=== PATIENT | male | born 1995 | race African-American/Black ===

== ENCOUNTER 2016-05-05 15:27 | Inpatient (IN) | payer MEDICAID, OTHER ==
[~2016-05-05] VITALS: Ht 182.9 cm; Wt 67.8 kg
[~2016-05-05 15:27] MED LIST: BENZ1 PO; MIRT15 PO; RISP25P IM; RISP3TAB23 PO
[2016-05-05] MEDS ORDERED: RISP50P IM (17:53)
[2016-05-05] MEDS ORDERED: RISP3 PO (17:53)
[2016-05-05] MEDS ORDERED: COGENTIN PO (17:53)
--- NOTE | 2016-05-05 18:55 | PD ---
HPI Chief Complaint: Psychiatric Symptoms Time Seen by Provider: 18:53 Travel History International Travel<30 days: No Contact w/Intl Traveler<30days: No History of Present Illness HPI Patient comes in under an ex-parte by his grandmother for making suicidal statements and acting irrationally. Patient states that when he tries to think he gets this "zapping sensation" in his brain that makes him irritable. Denies any suicidal or homicidal ideations. Denies anything making it better or worse. Denies any other medical concerns at this time. Patient denies any chest pain, shortness of breath, fevers, or abdominal pain. PFSH Past Medical History Asthma: Yes Anxiety: Yes Depression: Yes Cancer: No Cardiovascular Problems: No (DENIES) COPD: No Diabetes: No Diminished Hearing: No Endocrine: No Genitourinary: No Immune Disorder: No Neurologic: No (DENIES) Psychiatric: Yes Reproductive: No Respiratory: Yes Immunizations Current: Yes Sleep Apnea: No Social History Alcohol Use: Yes Tobacco Use: Yes Substance Use: Yes Allergies-Medications (Allergen,Severity, Reaction): Coded Allergies: No Known Allergies (Unverified , 05/05/16) Reported Meds & Prescriptions Reported Meds & Active Scripts Active Reported Risperdal Consta Inj (Risperidone) 50 Mg Inj 50 Mg IM Q14D [Cogentin] 2 Mg PO HS Risperdal (Risperidone) 3 Mg Tab 3 Mg PO HS Review of Systems Except as stated in HPI: all other systems reviewed are Neg Physical Exam Narrative GENERAL: Well-developed, well nourished, in no acute distress, and non-ill appearing. SKIN: Warm and dry. HEAD: Atraumatic. Normocephalic. EYES: Pupils equal and round. EOMI. No scleral icterus. No injection or drainage. ENT: No nasal bleeding or discharge. Mucous membranes pink and moist. NECK: Trachea midline. Supple. No nuclear rigidity. CARDIOVASCULAR: Regular rate and rhythm. No murmur appreciated. RESPIRATORY: No accessory muscle use. No respiratory distress. Clear to auscultation. Breath sounds equal bilaterally. MUSCULOSKELETAL: No obvious deformities. No clubbing. No cyanosis. No edema. Full range of motion. NEUROLOGICAL: Awake and alert. No obvious cranial nerve deficits. Motor grossly within normal limits. Normal speech. PSYCHIATRIC: Appropriate mood and affect. Data Data Orders Psych Screen (05/05/16 16:15) Diet Regular Basic (05/05/16 Dinner) Complete Blood Count With Diff (05/05/16 17:09) Comprehensive Metabolic Panel (05/05/16 17:09) Drug Screen, Random Urine (05/05/16 17:09) Alcohol (Ethanol) (05/05/16 17:09) Salicylates (Aspirin) (05/05/16 17:09) Tylenol (Acetaminophen) (05/05/16 17:09) Risperidone (Risperdal) (05/05/16 21:00) Benztropine (Cogentin) (05/05/16 21:00) Labs Laboratory Tests Test 05/05/16 05/05/16 17:49 18:03 Urine Opiates Screen NEG Urine Barbiturates Screen NEG Urine Amphetamines Screen NEG Urine Benzodiazepines Screen NEG Urine Cocaine Screen NEG Urine Cannabinoids Screen POS White Blood Count 10.1 TH/MM3 Red Blood Count 4.71 MIL/MM3 Hemoglobin 14.4 GM/DL Hematocrit 43.9 % Mean Corpuscular Volume 93.3 FL Mean Corpuscular Hemoglobin 30.6 PG Mean Corpuscular Hemoglobin 32.9 % Concent Red Cell Distribution Width 12.6 % Platelet Count 227 TH/MM3 Mean Platelet Volume 8.8 FL Neutrophils (%) (Auto) 65.8 % Lymphocytes (%) (Auto) 28.8 % Monocytes (%) (Auto) 4.5 % Eosinophils (%) (Auto) 0.5 % Basophils (%) (Auto) 0.4 % Neutrophils # (Auto) 6.6 TH/MM3 Lymphocytes # (Auto) 2.9 TH/MM3 Monocytes # (Auto) 0.5 TH/MM3 Eosinophils # (Auto) 0.1 TH/MM3 Basophils # (Auto) 0.0 TH/MM3 CBC Comment DIFF FINAL Differential Comment Sodium Level 140 MEQ/L Potassium Level 3.9 MEQ/L Chloride Level 103 MEQ/L Carbon Dioxide Level 29.0 MEQ/L Anion Gap 8 MEQ/L Blood Urea Nitrogen 7 MG/DL Creatinine 0.98 MG/DL Estimat Glomerular Filtration 115 ML/MIN Rate Random Glucose 71 MG/DL Calcium Level 9.4 MG/DL Total Bilirubin 0.6 MG/DL Aspartate Amino Transf 17 U/L (AST/SGOT) Alanine Aminotransferase 18 U/L (ALT/SGPT) Alkaline Phosphatase 104 U/L Total Protein 7.7 GM/DL Albumin 4.3 GM/DL Salicylates Level 4.3 MG/DL Acetaminophen Level LESS THAN 2.0 MCG/ML Ethyl Alcohol Level LESS THAN 3 MG/DL MDM Medical Decision Making Medical Screen Exam Complete: Yes Emergency Medical Condition: Yes Differential Diagnosis Schizophrenia, bipolar, suicidal, homicidal, other Narrative Course Patient was seen and examined. Labs were obtained and reviewed. Patient medically cleared for further treatment and evaluation by psych. Final disposition per psych. Diagnosis Primary Impression: Schizophrenia Qualified Code: F20.9 - Schizophrenia, unspecified type Condition: Stable Arslan Heredia May 05, 2016 18:55
[2016-05-05 18:57] LABS: AUTOMATED NEUTROPHIL # 6.6 TH/MM3 (1.8-7.7); BASOPHIL % 0.4 % (0.0-2.0); EOSINOPHIL # 0.1 TH/MM3 (0-0.4); EOSINOPHIL % 0.5 % (0.0-4.0); HEMATOCRIT 43.9 % (39.0-51.0); HEMO FLAGS DIFF FINAL; LYMPH % 28.8 % (9.0-44.0); LYMPHOCYTE # 2.9 TH/MM3 (1.0-4.8); MEAN CELL VOLUME 93.3 FL (80.0-100.0); MEAN CORPUSCULAR HEMOGLOBIN 30.6 PG (27.0-34.0); MEAN CORPUSCULAR HGB CONC 32.9 % (32.0-36.0); MONO % 4.5 % (0.0-8.0); NEUT % 65.8 % (16.0-70.0); PLATELET COUNT 227 TH/MM3 (150-450); RED BLOOD COUNT 4.71 MIL/MM3 (4.50-5.90); RED CELL DISTRIBUTION WIDTH 12.6 % (11.6-17.2); WHITE BLOOD COUNT 10.1 TH/MM3 (4.0-11.0)
[2016-05-05 19:03] LABS: AMPHETAMINE, URINE NEG (NEG); BARBITURATES, URINE NEG (NEG); COCAINE, URINE NEG (NEG)
[2016-05-05 19:30] LABS: ALKALINE PHOSPHATASE 104 U/L (45-117); ALT (GPT) 18 U/L (12-78); ANION GAP 8 MEQ/L (5-15); AST (GOT) 17 U/L (15-37); BLOOD UREA NITROGEN 7 MG/DL (7-18); CHLORIDE 103 MEQ/L (98-107); GLOMERULAR FILTRATION RATE 115 ML/MIN (>89); POTASSIUM 3.9 MEQ/L (3.5-5.1); SODIUM (NA) 140 MEQ/L (136-145); TOTAL BILIRUBIN ADULT 0.6 MG/DL (0.2-1.0)
[2016-05-05 19:33] LABS: ACETAMINOPHEN LESS THAN 2.0 MCG/ML (10.0-30.0)
[2016-05-05] MEDS: risperiDONE 3 MG TAB PO SCH (20:51)
[2016-05-05] MEDS: BENZTROPINE MESYLATE 2 MG TAB PO SCH (20:51)
[2016-05-05 22:23] VITALS: BP 178/75; PULSE 112; RESP 18; O2SAT 97
[2016-05-06] MEDS ORDERED: ALUMINUM/MAGNESIUM/SIMETH 30 ML CUP PO PRN (01:30)
[2016-05-06] MEDS ORDERED: diphenhydrAMINE HCL 50 MG/ML VIAL IM PRN (01:30)
[2016-05-06] MEDS ORDERED: diphenhydrAMINE HCL 50 MG/ML VIAL - HS PRN IM (01:30)
[2016-05-06] MEDS ORDERED: MAGNESIUM HYDROXIDE SUSP 30 ML CUP PO PRN (01:30)
[2016-05-06 01:54] VITALS: BP 107/77; PULSE 98; RESP 19; O2SAT 98
[2016-05-06 01:57] VITALS: BP 107/75; PULSE 78; RESP 18; O2SAT 100
[2016-05-06 02:35] VITALS: BP 122/80; PULSE 87; RESP 18; TEMP 97; O2SAT 98
[2016-05-06 06:16] VITALS: BP 104/59; PULSE 88; RESP 18; TEMP 98.1; O2SAT 99
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
[2016-05-06] MEDS: diphenhydrAMINE HCL 50 MG CAP PO PRN ×2 (17:26→21:01)
[2016-05-06] MEDS: ACETAMINOPHEN 325 MG TAB PO PRN ×2 (17:26→21:01)
[2016-05-06 18:00] VITALS: BP 131/65; PULSE 61; RESP 18; TEMP 97.5; O2SAT 100
[2016-05-06] MEDS ORDERED: BENZ2TAB PO (19:06)
[2016-05-06 20:30] VITALS: BP 131/65; PULSE 61; RESP 18
[2016-05-06] MEDS: BENZTROPINE MESYLATE 2 MG TAB PO SCH (21:00)
[2016-05-06] MEDS: risperiDONE 3 MG TAB PO SCH (21:01)
[2016-05-07 06:01] VITALS: BP 93/54; PULSE 83; RESP 16; TEMP 97.8; O2SAT 99
--- NOTE | 2016-05-07 11:52 | HHI.PYPN ---
Subjective Remarks Patient was seen and discussed with the [facility] plans staff officer. Patient remained somewhat demanding and agitated wanting to go home. But he could be reassured. He claimed that he did take the medication. He denies any suicidal and/or homicidal ideation intentions or plan at this time probably because he wants to go home. Denied any active auditory or visual hallucinations however patient gets easily agitated and paranoid if he doesn't get his way. Continue with the same treatment Review of Systems Except as stated in HPI: all other systems reviewed are Neg Psychiatric: COMPLAINS OF: Mood changes, Depression, Agitation, Delusions Objective Alert: Yes [place]: Person, Place, Situation Mood: Agitated, Depressed Affect: Restricted Memory Intact: Comment (memory seems fairly intact) Hallucinations: Other (patient denied any active auditory or visual hallucinations) Delusions: Yes Delusion Type: Paranoid Suicidal: Ideation (patient denies any suicidal ideation intentions or plan) Homicidal: Ideation (denies any homicidal ideation intentions or plan) Insight/Judgement Limited Remarks Attention and concentration mildly impaired. Gait normal. Language normal. Fund of knowledge average Vitals/IOs Vital Signs Date Time Temp Pulse Resp B/P Pulse Ox O2 Delivery O2 Flow Rate FiO2 05/07/16 06:01 97.8 83 16 93/54 99 05/06/16 01:57 Room Air Assessment & Plan Problem List: (1) Schizophrenia ICD Code: F20.9 Assessment & Plan Estimated LOS: days Justification for Cont. Inpt. Monitoring of the medication to stabilize mood Request HC Surrog/Guard Advoc?: No Problem Qualifiers (1) Schizophrenia: Qualified Code: F20.0 - Paranoid schizophrenia Chris Kraft MD May 07, 2016 11:52
[2016-05-07] MEDS: diphenhydrAMINE HCL 50 MG CAP PO PRN (14:08)
[2016-05-07 18:00] VITALS: BP 135/77; PULSE 116; RESP 16; TEMP 98.5; O2SAT 98
[2016-05-07] MEDS: BENZTROPINE MESYLATE 2 MG TAB PO SCH (20:53)
[2016-05-07] MEDS ORDERED: risperiDONE 1 MG TAB PO SCH (21:00)
[2016-05-08] MEDS: diphenhydrAMINE HCL 50 MG CAP - HS PRN PO ×2 (00:45→20:16)
[2016-05-08 05:47] VITALS: BP 112/57; PULSE 62; RESP 17; TEMP 98; O2SAT 100
--- NOTE | 2016-05-08 11:40 | HHI.PYPN ---
Subjective Remarks Patient was seen and discussed with the billing and accounting staff assistant. Patient reported that he has been having some difficulty sleeping he was up 3 or 4 times and he does not even remember getting up and eating his breakfast. But he claimed that he has been taking medication and feeling little bit better less paranoid and more cooperative is not insisting on leaving. No behavior or management problem reported. He is compliant. No side effects were complained. Advised to continue with the same treatment Review of Systems Except as stated in HPI: all other systems reviewed are Neg Psychiatric: COMPLAINS OF: Anxiety, Mood changes, Depression, Delusions Objective Alert: Yes [place]: Person, Place, Situation Mood: Agitated, Anxious, Depressed Affect: Restricted Memory Intact: Comment (memory seems fairly intact) Hallucinations: Other (patient denied any active auditory or visual hallucinations) Delusions: Yes Delusion Type: Paranoid Suicidal: Ideation (patient denies any suicidal ideation intentions or plan) Homicidal: Ideation (denies any homicidal ideation intentions or plan) Insight/Judgement Limited Vitals/IOs Vital Signs Date Time Temp Pulse Resp B/P Pulse Ox O2 Delivery O2 Flow Rate FiO2 05/08/16 05:47 98.0 62 17 112/57 100 05/06/16 01:57 Room Air Intake and Output 05/07/16 05/07/16 05/08/16 08:00 16:00 00:00 Intake Total 360 ml Balance 360 ml Assessment & Plan Problem List: (1) Schizophrenia ICD Code: F20.9 Assessment & Plan Estimated LOS: days Justification for Cont. Inpt. His current decompensation and monitoring of the medication Request HC Surrog/Guard Advoc?: No Problem Qualifiers (1) Schizophrenia: Qualified Code: F20.0 - Paranoid schizophrenia Chris Kraft MD May 08, 2016 11:40
--- NOTE | 2016-05-08 14:43 | PD.CONS ---
Provisional Diagnosis Admission Date May 06, 2016 at 01:06 [place] I. Schizophrenic disorder chronic paranoid type [place] II. Paranoid trait and dependent trait [place] III. Please see the emergency room evaluation [place] IV. Moderate stress difficulty coping and noncompliance in taking medicine [place] V. GAF of 40-45 History of Present Illness Service Psychiatry Consult Requested By Primary Care Physician No Primary Care Physician HPI This is a 21-year-old black male who was admitted under ex part. Please see the report for the detail. But according to the grandmother patient wanted to he has been staying up. He is slamming door. He talks to himself. He threatens others he refuses to take the medication or get any voluntary help. He gets easily irritated table at that point grandmother initiated the process and patient was brought here for evaluation. Patient reported that there is nothing wrong with him his grandmother needs help. And he is not mentally ill. He does admit to smoking pot. He claimed that he stays with 2 other cousins and they make noise and grandmother does not tell them not to do anything he gets easily irritated table and upset. He denies any suicidal and/or homicidal ideation intentions or plan at this time. He denies any auditory or visual hallucinations. But he did get easily upset when he did not get his way or patient wanted to be discharged and not stay in the hospital. 05/08/16 Above note dictated by Dr. Kraft reviewed and agreed with. Patient is a 21-year -old Afro-[place]ib[place]ian male admitted to Dr. medicine service under the Regalado act. Dr. Kraft has signed first opinion petition supporting [place] act. Patient seen by me with nurse Hall patient continues somewhat vigilant and paranoid though today stating he is willing to be compliant with medication. It appears recent conflict relationship at home with his grandmother also. I agree with Dr. Kraft At the present time patient meets criteria for involuntary psychiatric hospitalization under the [place] act thus I will cosign second opinion petition supporting [place] act Past Family Social History Coded Allergies: No Known Allergies (Unverified , 05/05/16) Reported Medications Benztropine 2 Mg Tab2 Mg PO HS #30 TAB Ref 0 05/06/16 Risperidone Inj (Risperdal Consta Inj)50 Mg Inj50 Mg IM Q14D #2 VIAL Ref 0 05/05/16 Risperidone (Risperdal)3 Mg Tab3 Mg PO HS #30 TAB Ref 0 05/05/16 Discontinued Scripts Risperdal3 M1 3 Mg Tab3 Mg PO Q12 21 Days Ref 0 Continue oral Risperdal for 3 weeks, or as directed by your outpatient provider. Continue to get Risperdal Consta injections as ordered. Prov:Kofi Da Silva MD 10/22/15 Risperidone (Risperdal Consta)25 Mg/2 Ml Inj25 Mg IM [id number] #1 INJECTION Ref 0 Next dose of Risperdal Consta due on 11/05/2015 Prov:Kofi Da Silva MD 10/22/15 [id number] M1 15 Mg Tab15 Mg PO HS 15 Days Ref 1 Prov:Kofi Da Silva MD 10/22/15 Benztropine Mesy1 M2 1 Mg Tab1 Mg PO Q12HR 15 Days Ref 1 Prov:Kofi Da Silva MD 10/22/15 Current Medications Medications (Trade) Dose Ordered Sig/Berna Route Start Time Stop Time Status Last Admin (Cogentin) 2 mg HS PO 05/05/16 21:00 05/07/16 20:53 (Benadryl) 50 mg Q6H PRN PO 05/06/16 01:15 05/07/16 14:08 (Benadryl Inj) 50 mg Q6H PRN IM 05/06/16 01:30 (Benadryl) 50 mg HS PRN PO 05/06/16 01:30 05/08/16 00:45 (Benadryl Inj) 50 mg HS PRN IM 05/06/16 01:30 (Tylenol) 650 mg Q4H PRN PO 05/06/16 01:30 05/06/16 21:01 (Milk Of Magnesia Liq) 30 ml DAILY PRN PO 05/06/16 01:30 (Mag-Al Plus Susp Liq) 30 ml Q6H PRN PO 05/06/16 01:30 (risperDAL) 6 mg HS PO 05/08/16 21:00 Patient's Strengths (min. 2) Patient is cooperative and verbal Physical Exam Vital Signs Vital Signs Date Time Temp Pulse Resp B/P Pulse Ox O2 Delivery O2 Flow Rate FiO2 05/08/16 05:47 98.0 62 17 112/57 100 05/06/16 01:57 Room Air I/O 05/07/16 05/07/16 05/08/16 08:00 16:00 00:00 Intake Total 360 ml Balance 360 ml Mental Status Examination Alert calm tall slender Afro-[place] male cooperative with good eye contact if somewhat guarded in his responses Appearance Clean neatly Speech: Unremarkable Orientation: x3 Memory: Unremarkable Thought Process: Linear Thought Content: Unremarkable, Paranoid (mildly) Hallucination Type: None (denies) Attention and Concentration: Other (fair) Suicidal Ideation: No Previous Suicide Attempts: No Homicidal Ideation: No Previous Homicide Attempts: No Insight: Fair Judgement: Poor Affect: Other (decreased range and intensity) Mood: Euthymic (to somewhat restricted) Motor Activity: Normal gait Assessment & Plan Problem List: (1) Schizophrenia ICD Code: F20.9 Assessment & Plan Estimated LOS: days Request HC Surrog/Guard Advoc?: No Problem Qualifiers (1) Schizophrenia: Qualified Code: F20.0 - Paranoid schizophrenia Regulo Nick MD May 08, 2016 14:43
[2016-05-08 18:58] VITALS: BP 131/58; PULSE 77; RESP 17; O2SAT 98
[2016-05-08] MEDS: BENZTROPINE MESYLATE 2 MG TAB PO SCH (20:16)
[2016-05-08] MEDS: risperiDONE 3 MG TAB PO SCH (20:16)
[2016-05-09 05:37] VITALS: BP 128/67; PULSE 73; RESP 16; TEMP 97.4
--- NOTE | 2016-05-09 18:08 | HHI.PYPN ---
Subjective Remarks Pt seen and discussed with staff. Pt is paranoid with IOR and bizarre behavior. He is compliant with medications and states that "I want to see how they do when I'm out of here." No SI/HI. Review of Systems Psychiatric: COMPLAINS OF: Hallucinations, Delusions Objective Alert: Yes [place]: Person, Place, Situation Mood: Calm Affect: Flat Memory Intact: Comment (memory seems fairly intact) Hallucinations: Auditory, Other Delusions: Yes Delusion Type: Paranoid Suicidal: Ideation (patient denies any suicidal ideation intentions or plan) Homicidal: Ideation (denies any homicidal ideation intentions or plan) Insight/Judgement poor Vitals/IOs Vital Signs Date Time Temp Pulse Resp B/P Pulse Ox O2 Delivery O2 Flow Rate FiO2 05/09/16 05:37 97.4 73 16 128/67 05/08/16 18:58 98 05/06/16 01:57 Room Air Assessment & Plan Problem List: (1) Schizophrenia ICD Code: F20.9 Assessment & Plan Continue current tx plan. Estimated LOS: days Justification for Cont. Inpt. impairments in reality construction. Request HC Surrog/Guard Advoc?: No Problem Qualifiers (1) Schizophrenia: Qualified Code: F20.0 - Paranoid schizophrenia Leonor Madsen MD May 09, 2016 18:08
[2016-05-09] MEDS: BENZTROPINE MESYLATE 2 MG TAB PO SCH (20:21)
[2016-05-09] MEDS: risperiDONE 3 MG TAB PO SCH (20:21)
[2016-05-09 21:00] VITALS: BP 118/61; PULSE 79; RESP 18; TEMP 98; O2SAT 97
[2016-05-10 05:10] VITALS: BP 102/54; PULSE 64; RESP 18; TEMP 98; O2SAT 98
--- NOTE | 2016-05-10 19:41 | HHI.PYPN ---
Subjective Remarks Pt seen and discussed with staff. He reports that he is tolerating medications without side effects. Less internal stimulation today. No SI/HI. He remains isolative but has been out of room more. Objective Alert: Yes Gooding: Person, Place, Date, Situation Mood: Calm Affect: Flat Memory Intact: Comment (memory seems fairly intact) Hallucinations: Auditory, Other Delusions: Yes Delusion Type: Paranoid Suicidal: Ideation (patient denies any suicidal ideation intentions or plan) Homicidal: Ideation (denies any homicidal ideation intentions or plan) Insight/Judgement limited Vitals/IOs Vital Signs Date Time Temp Pulse Resp B/P Pulse Ox O2 Delivery O2 Flow Rate FiO2 05/10/16 05:10 98.0 64 18 102/54 98 Assessment & Plan Problem List: (1) Schizophrenia ICD Code: F20.9 Assessment & Plan Continue tx plan. Estimated LOS: days Justification for Cont. Inpt. impairments in reality Request HC Surrog/Guard Advoc?: No Problem Qualifiers (1) Schizophrenia: Qualified Code: F20.0 - Paranoid schizophrenia Leonor Madsen MD May 10, 2016 19:41
[2016-05-10] MEDS: risperiDONE 3 MG TAB PO SCH (20:23)
[2016-05-10] MEDS: BENZTROPINE MESYLATE 2 MG TAB PO SCH (20:23)
[2016-05-10 21:10] VITALS: BP 137/86; PULSE 60; TEMP 98.1; O2SAT 98
[2016-05-11] MEDS: diphenhydrAMINE HCL 50 MG CAP - HS PRN PO (03:50)
[2016-05-11 05:23] VITALS: BP 117/66; PULSE 89; RESP 16; TEMP 98; O2SAT 99
--- NOTE | 2016-05-11 10:20 | HHI.DS ---
Psychiatry Discharge Summary Inpatient Psychiatric care?: Yes Advance Directive: No Reason Not Provided: DOES NOT HAVE ONE Mental Health AdvanceDirective: No Health Care Proxy: No Admission Admission Date May 06, 2016 at 01:06 Admission Diagnosis: (1) Schizophrenia ICD Code: F20.9 GAF Score: 45 Brief History This is a 21-year-old black male who was admitted under . Please see the report for the detail. But according to the grandmother patient wanted to he has been staying up. He is slamming door. He talks to himself. He threatens others he refuses to take the medication or get any voluntary help. He gets easily irritated table at that point grandmother initiated the process and patient was brought here for evaluation. Patient reported that there is nothing wrong with him his grandmother needs help. And he is not mentally ill. He does admit to smoking pot. He claimed that he stays with 2 other cousins and they make noise and grandmother does not tell them not to do anything he gets easily irritated table and upset. He denies any suicidal and/or homicidal ideation intentions or plan at this time. He denies any auditory or visual hallucinations. But he did get easily upset when he did not get his way or patient wanted to be discharged and not stay in the hospital. 05/08/16 Above note dictated by Dr. Kraft reviewed and agreed with. Patient is a 21-year -old Afro-Australian male admitted to Dr. medicine service under the Regalado act. Dr. Kraft has signed first opinion petition supporting [place] act. Patient seen by me with nurse Rafael patient continues somewhat vigilant and paranoid though today stating he is willing to be compliant with medication. It appears recent conflict relationship at home with his grandmother also. I agree with Dr. Kraft At the present time patient meets criteria for involuntary psychiatric hospitalization under the [place]alado act thus I will cosign second opinion petition supporting [place] act Tobacco Use In Past 30 Days: Refused To Answer Alcohol Use: Never Hospital Course Patient was started was supportive treatment. He was also started on the medication and adjusted. Patient participated in all the therapeutic activity on the floor he was also isolative and keeps to himself. No behavior or management problem reported. Patient denied any suicidal ideation intentions or plan. Denied any active auditory or visual hallucinations. Willing to take the medication and follow-up as an outpatient and wanting to go home at that point arrangements were made for him to be discharged Results Blood Pressure 117 / 66 Vital Signs Date Time Temp Pulse Resp B/P Pulse Ox O2 Delivery O2 Flow Rate FiO2 05/11/16 05:23 98.0 89 16 117/66 99 Please see the EMR Summary of Major Lab Results Nothing significant Summary of Procedures None Imaging None Pending results at discharge: No Medications # of Antipsychotic meds at D/C: 1 Appropriate >1 Antipsych meds?: 2 Approp Antipsych med options 1 - Minimum of three failed multiple trials of monotherapy. Discharge Discharge Date: May 11, 2016 Discharge Diagnosis: (1) Schizophrenia Diagnosis: Principal ICD Code: F20.9 Mental Status Exam at Disch Patient was alert oriented 3 cooperative. Casually dressed. His speech was clear without any evidence of loose associations. No behavior or management problem reported. Willing to take the medication and follow-up as an outpatient. Denied any suicidal and/or homicidal ideation intentions or plan. Denied any active auditory or visual hallucinations. Wants to go home Pt Condition on Discharge: Stable Discharge Disposition: Discharge Home Discharge Instructions Diet Instructions: As Tolerated, No Restrictions Activities you can perform: Regular-No Restrictions Scheduled Appointment: Sajan Begum Discharge Time <= 30 minutes Discharge/Advance Care Plan Health Problems: (1) Schizophrenia Goals to promote your health * To prevent worsening of your condition and complications * To maintain your health at the optimal level Directions to meet your goals Take your medications as prescribed Follow your dietary instruction Follow activity as directed Keep your appointments as scheduled Take your immunizations and boosters as scheduled If your symptoms worsen call your PCP, if no PCP go to Urgent Care Center or Emergency Room For 09/11 questions related to your inpatient stay or results of tests pending at discharge, please contact Dr. Chris Kraft at Smoking is Dangerous to Your Health. Avoid second hand smoking Problem Qualifiers (1) Schizophrenia: Qualified Code: F20.0 - Paranoid schizophrenia Chris Kraft MD May 11, 2016 10:20
[2016-05-11] MEDS ORDERED: RISP3 PO (10:22)
[2016-05-11] MEDS ORDERED: BENZ2TAB PO (10:22)
== END 2016-05-11 12:15 | disposition home or self-care (01) | DRG 885 ==
LOC: NEPJ 15:27 → NEDA 05-06 01:06 → H260 05-06 02:30
PROVIDERS: ADMIT Psychiatry & Neurology Psychiatry; ATTEND Psychiatry & Neurology Psychiatry
DX: F20.0 Paranoid schizophrenia (principal); Z91.14 Patient's other noncompliance with medication regimen; F41.9 Anxiety disorder, unspecified; F12.90 Cannabis use, unspecified, uncomplicated; J45.909 Unspecified asthma, uncomplicated; Z72.0 Tobacco use; Z81.8 Family history of other mental and behavioral disorders
CPT/HCPCS: 80053; 80307; 80320; 80329; 85025; 99284; G0480; G0481; Q0163

== ENCOUNTER 2016-10-26 17:16 | Inpatient (IN) | payer MEDICAID, OTHER ==
[~2016-10-26 17:16] MED LIST changes: -BENZ1 PO; +BENZ2TAB PO; -MIRT15 PO; -RISP25P IM; +RISP3 PO; -RISP3TAB23 PO; +RISP50P IM
[2016-10-26 17:45] VITALS: BP 131/77; PULSE 86; RESP 18; TEMP 98.3; O2SAT 98
[2016-10-26 18:18] LABS: AUTOMATED NEUTROPHIL # 5.1 TH/MM3 (1.8-7.7); BASOPHIL # 0.1 TH/MM3 (0-0.2); BASOPHIL % 0.6 % (0.0-2.0); EOSINOPHIL # 0.1 TH/MM3 (0-0.4); EOSINOPHIL % 0.7 % (0.0-4.0); HEMATOCRIT 44.6 % (39.0-51.0); HEMO FLAGS DIFF FINAL; LYMPH % 36.1 % (9.0-44.0); LYMPHOCYTE # 3.3 TH/MM3 (1.0-4.8); MEAN CELL VOLUME 93.8 FL (80.0-100.0); MEAN CORPUSCULAR HEMOGLOBIN 30.1 PG (27.0-34.0); MEAN CORPUSCULAR HGB CONC 32.2 % (32.0-36.0); MONO % 6.6 % (0.0-8.0); PLATELET COUNT 241 TH/MM3 (150-450); RED BLOOD COUNT 4.76 MIL/MM3 (4.50-5.90); WHITE BLOOD COUNT 9.1 TH/MM3 (4.0-11.0)
[2016-10-26 18:19] LABS: BLOOD, URINE NEG (NEG); COMMENT (UR) CULT NOT INDICATED; CULTURE IF INDICATED CULT NOT INDICATED; GLUCOSE,URINE NEG (NEG); KETONE, URINE NEG (NEG); NITRITE,URINE NEG (NEG); PH, URINE 5.5 (5.0-8.5); SQUAMOUS EPITHELIAL CELL URINE <1 /hpf (0-5); URINE COLOR YELLOW (YELLW/STRAW)
[2016-10-26 18:34] LABS: ANION GAP 8 MEQ/L (5-15); AST (GOT) 29 U/L (15-37); BICARBONATE 25.3 MEQ/L (21.0-32.0); BLOOD UREA NITROGEN 9 MG/DL (7-18); CHLORIDE 105 MEQ/L (98-107); GLOMERULAR FILTRATION RATE 119 ML/MIN (>89); SODIUM (NA) 138 MEQ/L (136-145)
[2016-10-26 18:35] LABS: ALT (GPT) 74 U/L (12-78)
[2016-10-26 18:36] LABS: ALKALINE PHOSPHATASE 100 U/L (45-117); TOTAL BILIRUBIN ADULT 0.6 MG/DL (0.2-1.0)
[2016-10-26 18:44] LABS: ACETAMINOPHEN LESS THAN 2.0 MCG/ML (10.0-30.0)
--- NOTE | 2016-10-26 19:37 | PD ---
HPI Chief Complaint: Psychiatric Symptoms Time Seen by Provider: 19:31 Travel History International Travel<30 days: No Contact w/Intl Traveler<30days: No History of Present Illness HPI Patient is a 21-year-old male brought into the emergency department for psychiatric evaluation under exparte. Per the [place] act report patient has not been taking his medications, he has been up all night, acting aggressively. Patient reports that he doesn't want take medications because he doesn't feel the right for him. He has no physical complaints at this time. He does endorse marijuana use today. He denies any suicidal homicidal ideations, he denies any visual auditory hallucinations. PFSH Past Medical History Asthma: Yes Anxiety: Yes Depression: Yes Cancer: No Cardiovascular Problems: Yes Chest Pain: Yes COPD: No Diabetes: No Diminished Hearing: No Endocrine: No Genitourinary: No Headaches: Yes Immune Disorder: No Musculoskeletal: Yes Neurologic: Yes Reproductive: No Respiratory: Yes (NASAL CONGESTION) Immunizations Current: Yes Sleep Apnea: No Tetanus Vaccination: < 5 Years Past Surgical History Surgical History: No Previous Surgery Social History Alcohol Use: Yes Tobacco Use: Yes Substance Use: Yes Allergies-Medications (Allergen,Severity, Reaction): Coded Allergies: No Known Allergies (Unverified , 05/05/16) Reported Meds & Prescriptions Reported Meds & Active Scripts Active Risperdal (Risperidone) 3 Mg Tab 6 Mg PO HS 14 Days Benztropine (Benztropine Mesylate) 2 Mg Tab 2 Mg PO HS 14 Days Reported Benztropine (Benztropine Mesylate) 2 Mg Tab 2 Mg PO HS Risperdal Consta Inj (Risperidone) 50 Mg Inj 50 Mg IM Q14D Risperdal (Risperidone) 3 Mg Tab 3 Mg PO HS Review of Systems Except as stated in HPI: all other systems reviewed are Neg Psychiatric: Positive: Disorder of Thought, Mood Disorder, Substance Abuse Physical Exam Narrative GENERAL: Well-developed, well-nourished, alert male. Resting comfortably in no acute distress. SKIN: Warm and dry. HEAD: Atraumatic. Normocephalic. EYES: Pupils equal and round. No scleral icterus. No injection or drainage. ENT: No nasal bleeding or discharge. Mucous membranes pink and moist. NECK: Trachea midline. No JVD. CARDIOVASCULAR: Regular rate and rhythm. RESPIRATORY: No accessory muscle use. Clear to auscultation. Breath sounds equal bilaterally. GASTROINTESTINAL: Abdomen soft, non-tender, nondistended. Hepatic and splenic margins not palpable. MUSCULOSKELETAL: Extremities without clubbing, cyanosis, or edema. No obvious deformities. NEUROLOGICAL: Awake and alert. No obvious cranial nerve deficits. Motor grossly within normal limits. Five out of 5 muscle strength in the arms and legs. Normal speech. PSYCHIATRIC: Flat mood and affect; insight and judgment impaired. Data Data Last Documented VS Vital Signs Date Time Temp Pulse Resp B/P Pulse Ox O2 Delivery O2 Flow Rate FiO2 10/26/16 17:45 98.3 86 18 131/77 98 Orders Complete Blood Count With Diff (10/26/16 17:31) Comprehensive Metabolic Panel (10/26/16:) Urinalysis - C+S If Indicated (10/26/16 17:31) Psych Screen (10/26/16 17:31) Salicylates (Aspirin) (10/26/16 17:31) Drug Screen, Random Urine (10/26/16:) Alcohol (Ethanol) (10/26/16 17:31) Tylenol (Acetaminophen) (10/26/16 17:31) Labs Laboratory Tests Test 10/26/16 17:36 White Blood Count 9.1 TH/MM3 Red Blood Count 4.76 MIL/MM3 Hemoglobin 14.4 GM/DL Hematocrit 44.6 % Mean Corpuscular Volume 93.8 FL Mean Corpuscular Hemoglobin 30.1 PG Mean Corpuscular Hemoglobin 32.2 % Concent Red Cell Distribution Width 13.0 % Platelet Count 241 TH/MM3 Mean Platelet Volume 9.0 FL Neutrophils (%) (Auto) 56.0 % Lymphocytes (%) (Auto) 36.1 % Monocytes (%) (Auto) 6.6 % Eosinophils (%) (Auto) 0.7 % Basophils (%) (Auto) 0.6 % Neutrophils # (Auto) 5.1 TH/MM3 Lymphocytes # (Auto) 3.3 TH/MM3 Monocytes # (Auto) 0.6 TH/MM3 Eosinophils # (Auto) 0.1 TH/MM3 Basophils # (Auto) 0.1 TH/MM3 CBC Comment DIFF FINAL Differential Comment Urine Color YELLOW Urine Turbidity CLEAR Urine pH 5.5 Urine Specific [place] 1.012 Urine Protein NEG mg/dL Urine Glucose (UA) NEG mg/dL Urine Ketones NEG mg/dL Urine Occult Blood NEG Urine Nitrite NEG Urine Bilirubin NEG Urine Urobilinogen LESS THAN 2.0 MG/DL Urine Leukocyte Esterase NEG Urine WBC LESS THAN 1 /hpf Urine Squamous Epithelial <1 /hpf Cells Microscopic Urinalysis Comment CULT NOT INDICATED Sodium Level 138 MEQ/L Potassium Level 4.0 MEQ/L Chloride Level 105 MEQ/L Carbon Dioxide Level 25.3 MEQ/L Anion Gap 8 MEQ/L Blood Urea Nitrogen 9 MG/DL Creatinine 0.95 MG/DL Estimat Glomerular Filtration 119 ML/MIN Rate Random Glucose 82 MG/DL Calcium Level 9.4 MG/DL Total Bilirubin 0.6 MG/DL Aspartate Amino Transf 29 U/L (AST/SGOT) Alanine Aminotransferase 74 U/L (ALT/SGPT) Alkaline Phosphatase 100 U/L Total Protein 7.6 GM/DL Albumin 4.1 GM/DL Salicylates Level 3.9 MG/DL Acetaminophen Level LESS THAN 2.0 MCG/ML Ethyl Alcohol Level LESS THAN 3 MG/DL MDM Medical Decision Making Medical Screen Exam Complete: Yes Emergency Medical Condition: Yes Interpretation(s) Laboratory Tests Test 10/26/16 17:36 White Blood Count 9.1 TH/MM3 Red Blood Count 4.76 MIL/MM3 Hemoglobin 14.4 GM/DL Hematocrit 44.6 % Mean Corpuscular Volume 93.8 FL Mean Corpuscular Hemoglobin 30.1 PG Mean Corpuscular Hemoglobin 32.2 % Concent Red Cell Distribution Width 13.0 % Platelet Count 241 TH/MM3 Mean Platelet Volume 9.0 FL Neutrophils (%) (Auto) 56.0 % Lymphocytes (%) (Auto) 36.1 % Monocytes (%) (Auto) 6.6 % Eosinophils (%) (Auto) 0.7 % Basophils (%) (Auto) 0.6 % Neutrophils # (Auto) 5.1 TH/MM3 Lymphocytes # (Auto) 3.3 TH/MM3 Monocytes # (Auto) 0.6 TH/MM3 Eosinophils # (Auto) 0.1 TH/MM3 Basophils # (Auto) 0.1 TH/MM3 CBC Comment DIFF FINAL Differential Comment Urine Color YELLOW Urine Turbidity CLEAR Urine pH 5.5 Urine Specific [place] 1.012 Urine Protein NEG mg/dL Urine Glucose (UA) NEG mg/dL Urine Ketones NEG mg/dL Urine Occult Blood NEG Urine Nitrite NEG Urine Bilirubin NEG Urine Urobilinogen LESS THAN 2.0 MG/DL Urine Leukocyte Esterase NEG Urine WBC LESS THAN 1 /hpf Urine Squamous Epithelial <1 /hpf Cells Microscopic Urinalysis Comment CULT NOT INDICATED Sodium Level 138 MEQ/L Potassium Level 4.0 MEQ/L Chloride Level 105 MEQ/L Carbon Dioxide Level 25.3 MEQ/L Anion Gap 8 MEQ/L Blood Urea Nitrogen 9 MG/DL Creatinine 0.95 MG/DL Estimat Glomerular Filtration 119 ML/MIN Rate Random Glucose 82 MG/DL Calcium Level 9.4 MG/DL Total Bilirubin 0.6 MG/DL Aspartate Amino Transf 29 U/L (AST/SGOT) Alanine Aminotransferase 74 U/L (ALT/SGPT) Alkaline Phosphatase 100 U/L Total Protein 7.6 GM/DL Albumin 4.1 GM/DL Salicylates Level 3.9 MG/DL Acetaminophen Level LESS THAN 2.0 MCG/ML Ethyl Alcohol Level LESS THAN 3 MG/DL Vital Signs Date Time Temp Pulse Resp B/P Pulse Ox O2 Delivery O2 Flow Rate FiO2 10/26/16 17:45 98.3 86 18 131/77 98 Differential Diagnosis Mood disorder versus substance abuse versus psychosis versus other Narrative Course Patient is a 21-year-old male under exparte presenting for psychiatric evaluation. Patient's vital signs are stable. Medical clearance and psychiatric screening explained to patient. Labs reviewed, no acute issues identified. Patient has been cooperative. Patient is medically cleared for psychiatric evaluation at this time. Diagnosis Primary Impression: Medical clearance for psychiatric admission Condition: Stable Roxanne Chin Oct 26, 2016 19:37
[2016-10-26 22:05] VITALS: BP 114/55; PULSE 78; RESP 18
[2016-10-26 22:52] LABS: AMPHETAMINE, URINE NEG (NEG); BARBITURATES, URINE NEG (NEG); COCAINE, URINE NEG (NEG)
[2016-10-27 01:48] VITALS: BP 136/63; PULSE 46; RESP 18; O2SAT 98
[2016-10-27 05:57] VITALS: BP 146/64; PULSE 71; RESP 17; O2SAT 96
--- NOTE | 2016-10-27 10:42 | PD ---
History of Present Illness Chief Complaint: Psychiatric Symptoms Time Seen by Provider: 10:20 Travel History International Travel<30 Days: No Contact w/Intl Traveler<30days: No Legal Status Legal Status: Ex Parte History of Present Illness: History of Present Illness HPI Mr. Salomon is a 21-year-old male brought into the emergency department under an exparte initiated by his grandmother , Ms. Michael Hidalgo . Per the report patient has not been taking his medications, stays up all night, acting aggressively, talking to himself, threatening to harm someone, very paranoid, increase in episodes of his rage, slams doors , refuses to take his medications. It continues to state that she believes that he will follow thru on his threats and will hurt himself or someone else for no reason. Chart reviewed. The patient was last hospitalized under the care of Dr. Kraft in April of 2016. His previous admission was in September of 2015 under the care of Dr. Da Silva. His hospitalizations are usually the result of his noncompliance with medication and his grandmother initiating an ex parte. Current toxicology is positive for cannabinoids. Patient seen and examined. Case discussed with nurse on J pod . Nurse on unit reports he became agitated this morning and appeared paranoid. On my examination today, patient presents as somewhat cognitively slowed , minimally cooperative and very angry. He keeps his head covered wit the blanket. No eye contact is maintained. His answers are vague and diffuse. When asked about hallucinations he states " I don't know". He presents as fairly suspicious and paranoid but does not elaborate. Limited psychiatric interview due to the degree of his anger and potential to become violent. He states " Your questions are making me hot and I get hot inside ". He will not elaborate and I did not pursue line of questioning. He did say that he does not need to take medication as he believes he does not need them. PFSH Past Medical History Asthma: Yes Anxiety: Yes Depression: Yes Cancer: No Cardiovascular Problems: Yes Chest Pain: Yes COPD: No Diabetes: No Diminished Hearing: No Endocrine: No Genitourinary: No Headaches: Yes Immune Disorder: No Musculoskeletal: Yes Neurologic: Yes Reproductive: No Respiratory: Yes (NASAL CONGESTION) Immunizations Current: Yes Sleep Apnea: No Tetanus Vaccination: < 5 Years Past Surgical History Surgical History: No Previous Surgery Psychiatric History Psychiatric History Hx Psychiatric Treatment: [facility] x2. [facility] outpatient History of Inpatient Treatment: Yes ([facility] x2. Last hosp in 2017.) Guns or firearms in home: No Social History Single male who was born in [facility]. He completed 10th grade. he lives with his grandmother. On disability. Hx of incarceration. Hx Alcohol Use: Yes Hx Tobacco Use: Yes Hx Substance Use: Yes Substance Use Type: Marijuana Other Substances Used: SMOKES MARIJUANA DAILY Hx of Substance Use Treatment: No Family Psychiatric History Unknown Allergies-Medications (Allergen,Severity, Reaction): Coded Allergies: No Known Allergies (Unverified , 05/05/16) Reported Meds & Prescriptions Reported Meds & Active Scripts Active Risperdal (Risperidone) 3 Mg Tab 6 Mg PO HS 14 Days Reported Risperdal Consta Inj (Risperidone) 50 Mg Inj 50 Mg IM Q14D Risperdal (Risperidone) 3 Mg Tab 3 Mg PO HS Review of Systems ROS Limitations: Uncooperative Exam Alert: Yes Marshall: Person Mood: Angry Affect: Restricted Speech: Clear Eye Contact: None Memory Intact: Comment (unable to test) Hallucinations: Auditory (hestaes " I don't know".) Delusions: Yes Delusion Type: Paranoid Suicidal: Ideation (deneis) Homicidal: Ideation (deneis) Insight/Judgement poor. Poor MDM Medical Decision Making Medical Record Reviewed: Yes Assessment/Plan 21 year old male with hx of schizophrenia under an ex parte for noncompliance with medication, increase in aggression, not sleeping , potential threat to self and others. At this time the patient is not cooperating and states that " he is getting hot inside " with examination inferring that he is feeling agitated. . He will be admitted to inpatient unit for further observation as well to maintain safety. Orders Complete Blood Count With Diff (10/26/16 17:31) Comprehensive Metabolic Panel (10/26/16 17:31) Urinalysis - C+S If Indicated (10/26/16 17:31) Psych Screen (10/26/16 17:31) Salicylates (Aspirin) (10/26/16 17:31) Drug Screen, Random Urine (10/26/16 17:31) Alcohol (Ethanol) (10/26/16 17:31) Tylenol (Acetaminophen) (10/26/16 17:31) Diet Regular Basic (10/27/16 Breakfast) Results Vital Signs Date Time Temp Pulse Resp B/P Pulse Ox O2 Delivery O2 Flow Rate FiO2 10/27/16 05:57 71 17 146/64 96 Room Air 10/27/16 01:48 46 18 136/63 98 Room Air 10/26/16 22:05 78 18 114/55 Room Air 10/26/16 17:45 98.3 86 18 131/77 98 Laboratory Tests Test 10/26/16 17:36 White Blood Count 9.1 Red Blood Count 4.76 Hemoglobin 14.4 Hematocrit 44.6 Mean Corpuscular Volume 93.8 Mean Corpuscular Hemoglobin 30.1 Mean Corpuscular Hemoglobin 32.2 Concent Red Cell Distribution Width 13.0 Platelet Count 241 Mean Platelet Volume 9.0 Neutrophils (%) (Auto) 56.0 Lymphocytes (%) (Auto) 36.1 Monocytes (%) (Auto) 6.6 Eosinophils (%) (Auto) 0.7 Basophils (%) (Auto) 0.6 Neutrophils # (Auto) 5.1 Lymphocytes # (Auto) 3.3 Monocytes # (Auto) 0.6 Eosinophils # (Auto) 0.1 Basophils # (Auto) 0.1 CBC Comment DIFF FINAL Differential Comment Urine Color YELLOW Urine Turbidity CLEAR Urine pH 5.5 Urine Specific [place] 1.012 Urine Protein NEG Urine Glucose (UA) NEG Urine Ketones NEG Urine Occult Blood NEG Urine Nitrite NEG Urine Bilirubin NEG Urine Urobilinogen LESS THAN 2.0 Urine Leukocyte Esterase NEG Urine WBC LESS THAN 1 Urine Squamous Epithelial <1 Cells Microscopic Urinalysis Comment CULT NOT INDICATED Sodium Level 138 Potassium Level 4.0 Chloride Level 105 Carbon Dioxide Level 25.3 Anion Gap 8 Blood Urea Nitrogen 9 Creatinine 0.95 Estimat Glomerular Filtration 119 Rate Random Glucose 82 Calcium Level 9.4 Total Bilirubin 0.6 Aspartate Amino Transf 29 (AST/SGOT) Alanine Aminotransferase 74 (ALT/SGPT) Alkaline Phosphatase 100 Total Protein 7.6 Albumin 4.1 Salicylates Level 3.9 Urine Opiates Screen NEG Acetaminophen Level LESS THAN 2.0 Urine Barbiturates Screen NEG Urine Amphetamines Screen NEG Urine Benzodiazepines Screen NEG Urine Cocaine Screen NEG Urine Cannabinoids Screen POS Ethyl Alcohol Level LESS THAN 3 Diagnosis Primary Impression: Medical clearance for psychiatric admission Additional Impression: Schizophrenia Admitting Information Admitting Physician Requests: Admit Condition: Stable Problem Qualifiers Additional Impression: Schizophrenia Qualified Code: F20.0 - Paranoid schizophrenia Archana Corona [facility] Oct 27, 2016 10:42
[2016-10-27] MEDS ORDERED: ALUMINUM/MAGNESIUM/SIMETH 30 ML CUP PO PRN (11:15)
[2016-10-27] MEDS ORDERED: ACETAMINOPHEN 325 MG TAB PO PRN (11:15)
[2016-10-27] MEDS ORDERED: MAGNESIUM HYDROXIDE SUSP 30 ML CUP PO PRN (11:15)
[2016-10-27 13:19] VITALS: BP 146/64; PULSE 71; RESP 17; O2SAT 96
[2016-10-28 06:08] VITALS: BP 114/75; PULSE 68; RESP 18; TEMP 98.1; O2SAT 98
--- NOTE | 2016-10-28 09:36 | HHI.HP ---
Provisional Diagnosis Admission Date Oct 27, 2016 at 11:15 [place] I. 1. Schizophrenia, paranoid type, acute decompensation 2. Cannabis abuse [place] II. Deferred [place] V. GAF is 30 presently Certification of Person's Competence To Provide Express and Informed Consent I have personally examined Danny Pimentel III , a person being served at [facility] on, Oct 28, 2016 09:36. Express and informed consent means consent voluntarily given in writing, by a competent person, after sufficient explanation and disclosure of the subject matter involved to enable the person to make a knowing and willful decision without any element of force, fraud, deceit, duress, or other form of constraint or coercion. This person is 18 years of age or older, is not now known to be incompetent to consent to treatment with a guardian advocate, and does not have a health care surrogate or proxy currently making medical treatment decisions. I have found this person to be one of the following: [] Competent to provide express and informed consent, as defined above, for voluntary admission to this facility and is competent to provide express and informed consent for treatment. He/she has the consistent capacity to make well reasoned, willful, and knowing decisions concerning his or her medical or mental health treatment. The person fully and consistently understands the purpose of the admission for examination/placement and is fully capable of personally exercising all rights assured [place] [x] Incompetent to provide express and informed consent to voluntary admission, and this is incompetent to provide express and informed consent to treatment. The person must be transferred to involuntary status and a petition for a guardian advocate filed with the Circuit Court. [] Refusing to provide express and informed consent to voluntary admission but is competent to provide express and informed consent for treatment. The person must be discharged or transferred to involuntary status. Form shall be completed within 24 hours of a person's arrival at the receiving facility and filed in the clinical record of each person: 1. Admitted on a voluntary basis 2. Permitted to provide express and informed consent to his/her own treatment 3. Allowed to transfer from involuntary to voluntary status 4. Prior to permitting a person to consent to his or her own treatment after having been previously found incompetent to consent to treatment. History of Present Illness Capacity: Lacks Capacity HPI Mr. Salomon is a 21-year-old male with a history of schizophrenia and cannabis use issues who presents under an ex parte order initiated by his grandmother Ms. Tucker alleging that the patient has been internally preoccupied and paranoid and has been increasingly rageful. Reviewing the electronic medical record, I note that the patient was admitted most recently under Dr. Kraft in April of this year, stabilized on Risperdal at that time. Patient seen and examined with counselor and nurse. Chart reviewed. Case discussed with nursing staff. On my examination today, the patient presents as guarded and paranoid. He keeps the covers over his head for much of the interview. He says that he was sent into the hospital he cut see has been "helping" his grandmother. He admits that he has been nonadherent with psychotropic medications for the last 2 months but cannot say why he is not taking them. He does not describe any side effects from the medications when he was taking them. He denies any audiovisual hallucinations but appears frankly internally preoccupied. I can elicit no feelings of ideas of reference or thought insertion/withdrawal. He denies any suicidal ideation or homicidal ideation but seems unreliable to contract for safety. He is unable to describe his mood and his affect is quite flat. He is generally hypoverbal. Thought process slowed with some thought blocking. Remainder of the psychiatric ROS is negative. Past psychiatric history: Patient has a history of schizophrenia and cannabis use. He is unsure of whether he is under psychiatric care on an outpatient basis. He denies a history of interval psychiatric admissions since he was here in April. He denies a history of suicide attempts. Family history: Patient denies any family history of mental illness. Chemical dependency history: Patient endorses regular use of cannabis. He says "I just do it." He becomes a little bit defensive on this point and seems pre- contemplative with respect to changing his pattern of use. Social history: Patient reports that he is living with his grandmother. He is single with no children. He has a 10th grade education. He is disabled. He does some yard work on the side. He denies any access to guns or firearms. He does endorse a history of legal problems in the past but denies any active legal issues. Review of Systems ROS Limitations: Psychotic, Poor Historian Except as stated in HPI: all other systems reviewed are Neg Past Psych History Psychological trauma history No reported trauma history to me Violence risk - others (6 mos) Indeterminate. Patient is psychotic and unpredictable. Violence risk - self (6 mos) Indeterminate. Patient is psychotic and unpredictable. Substance Abuse History Drugs/Alcohol past 12 months See above Past Family Social History Coded Allergies: No Known Allergies (Unverified , 05/05/16) Past Medical History See electronic medical record Active Scripts Risperidone (Risperdal)3 Mg Tab6 Mg PO HS 14 Days Ref 1 Prov:Chris Kraft MD 05/11/16 Reported Medications Risperidone Inj (Risperdal Consta Inj)50 Mg Inj50 Mg IM Q14D #2 VIAL Ref 0 05/05/16 Risperidone (Risperdal)3 Mg Tab3 Mg PO HS #30 TAB Ref 0 05/05/16 Discontinued Reported Medications Benztropine 2 Mg Tab2 Mg PO HS #30 TAB Ref 0 05/06/16 Discontinued Scripts Benztropine 2 Mg Tab2 Mg PO HS 14 Days Ref 1 Prov:Chris Kraft MD 05/11/16 Current Medications Medications (Trade) Dose Ordered Sig/Berna Route Start Time Stop Time Status Last Admin (Tylenol) 650 mg Q4H PRN PO 10/27/16 11:15 (Milk Of Magnesia Liq) 30 ml DAILY PRN PO 10/27/16 11:15 (Mag-Al Plus Susp Liq) 30 ml Q6H PRN PO 10/27/16 11:15 Family History See above Social History See above Patient's Strengths (min. 2) In monitored setting. Verbally fluent. Physical Exam Physical exam completed by ED provider. On my examination today, the patient appears to be no acute physical distress. No motor abnormalities noted. Laboratories vitals signs reviewed: Vital Signs Vital Signs Date Time Temp Pulse Resp B/P Pulse Ox O2 Delivery O2 Flow Rate FiO2 10/28/16 06:08 98.1 68 18 114/75 98 10/27/16 13:19 Room Air Lab Results Item Value Date Time White Blood Count 9.1 TH/MM3 10/26/16 173 Hemoglobin 14.4 GM/DL 10/26/16 1736 Platelet Count 241 TH/MM3 10/26/16 1736 Sodium Level 138 MEQ/L 10/26/16 1736 Potassium Level 4.0 MEQ/L 10/26/16 1736 Chloride Level 105 MEQ/L 10/26/16 173 Carbon Dioxide Level 25.3 MEQ/L 10/26/16 173 Blood Urea Nitrogen 9 MG/DL 10/26/16 1736 Creatinine 0.95 MG/DL 10/26/16 1736 Aspartate Amino Transf (AST/SGOT) 29 U/L 10/26/16 173 Alanine Aminotransferase (ALT/SGPT) 74 U/L 10/26/16 173 Alkaline Phosphatase 100 U/L 10/26/16 173 Urine Cannabinoids Screen POS H 10/26/16 1736 Ethyl Alcohol Level LESS THAN 3 MG/DL 10/26/16 173 Urinalysis bland. Mental Status Examination Patient is in hospital gown. He is somewhat disheveled. He is awake and alert and oriented to person and hospital at least. No motor abnormalities noted. Speech is somewhat slow with increased speech latency. Lying which and fund of knowledge seem average. Focus and concentration impaired. Memory seems at least fair on clinical exam. Patient is unable to describe mood for affect is flat. Thought process fairly linear but slowed. Paranoia present. Appears frankly internally preoccupied. Denies suicidal or homicidal ideation but seems unreliable contract for safety. Insight and judgment are poor. Assessment & Plan Problem List: (1) Schizophrenia ICD Code: F20.9 (2) Cannabis abuse ICD Code: F12.10 Assessment & Plan This is a 21-year-old male with psychiatric history as detailed above who presents under ex parte order initiated by his grandmother. On my examination today, the patient presents as paranoid and internally preoccupied. He admits to medication nonadherence. He has previous good response to Risperdal. Patient requires psychiatric hospitalization at this time for safety, observation and stabilization. Admit inpatient. Involuntary status. I have completed first opinion. Consult for second opinion. Request healthcare surrogate and guardian advocate. I called over to Sajan Baig to confirm last dose of Risperdal Consta as he has been on this in the past, but it seems that he hasn't been seen at [facility] since April of this year. I'll check an EKG for QTC but so long as this is within normal limits plan to start the patient on either Risperdal constant or Invega Sustenna given history of good tolerability to Risperdal in the past. [Update: EKG reveals sinus rhythm with QTc wnl. I will start oral Risperdal 1mg BID with plans for PERAZA tomorrow, ]. Haldol as needed for agitation, Ativan as needed for anxiety, Cogentin as needed for EPS, Ambien as needed for sleep. Vitals every shift. Counselor to see and obtain collateral from grandmother. Disposition planning. Estimated length of stay: 10-13 days. Discharge Planning Pending stabilization. Request HC Surrog/Guard Advoc?: Yes Problem Qualifiers (1) Schizophrenia: Qualified Code: F20.0 - Paranoid schizophrenia Kofi Da Silva MD Oct 28, 2016 09:36
[2016-10-28 10:14] LABS: ANION GAP 6 MEQ/L (5-15); BICARBONATE 31.4 MEQ/L (21.0-32.0); BLOOD UREA NITROGEN 10 MG/DL (7-18); CHLORIDE 103 MEQ/L (98-107); GLOMERULAR FILTRATION RATE 118 ML/MIN (>89); SODIUM (NA) 140 MEQ/L (136-145)
[2016-10-28] MEDS ORDERED: BENZTROPINE MESYLATE 1 MG TAB PO PRN (10:15)
[2016-10-28] MEDS ORDERED: BENZTROPINE MESYLATE 2 MG/2 ML VIAL IM PRN (10:15)
[2016-10-28] MEDS ORDERED: HALOPERIDOL LACTATE 5 MG/ML AMP IM PRN (10:15)
[2016-10-28] MEDS ORDERED: LORazepam 2 MG/ML VIAL IM PRN (10:15)
[2016-10-28] MEDS ORDERED: LORazepam 2 MG TAB PO PRN (10:15)
[2016-10-28] MEDS ORDERED: HALOPERIDOL 5 MG TAB PO PRN (10:15)
[2016-10-28] MEDS ORDERED: ZOLPIDEM TARTRATE 5 MG TAB PO PRN (10:15)
[2016-10-28 10:16] LABS: HDL CHOLESTEROL 48.1 MG/DL (40.0-60.0); LDL CHOLESTEROL 89 MG/DL (0-99)
--- NOTE | 2016-10-28 10:24 | PD.PSY.CON ---
Provisional Diagnosis Admission Date Oct 27, 2016 at 11:15 [place] I. 1. Schizophrenia, paranoid type, acute decompensation 2. Cannabis abuse [place] II. Deferred [place] V. GAF is 30 presently History of Present Illness Service Psychiatry Consult Requested By Primary Care Physician Unknown HPI Mr. Salomon is a 21-year-old male with a history of schizophrenia and cannabis use issues who presents under an ex parte order initiated by his grandmother Ms. Tucker alleging that the patient has been internally preoccupied and paranoid and has been increasingly rageful. Reviewing the electronic medical record, I note that the patient was admitted most recently under Dr. Kraft in April of this year, stabilized on Risperdal at that time. Patient seen and examined with counselor and nurse. Chart reviewed. Case discussed with nursing staff. On my examination today, the patient presents as guarded and paranoid. He keeps the covers over his head for much of the interview. He says that he was sent into the hospital he cut see has been "helping" his grandmother. He admits that he has been nonadherent with psychotropic medications for the last 2 months but cannot say why he is not taking them. He does not describe any side effects from the medications when he was taking them. He denies any audiovisual hallucinations but appears frankly internally preoccupied. I can elicit no feelings of ideas of reference or thought insertion/withdrawal. He denies any suicidal ideation or homicidal ideation but seems unreliable to contract for safety. He is unable to describe his mood and his affect is quite flat. He is generally hypoverbal. Thought process slowed with some thought blocking. Remainder of the psychiatric ROS is negative. Past psychiatric history: Patient has a history of schizophrenia and cannabis use. He is unsure of whether he is under psychiatric care on an outpatient basis. He denies a history of interval psychiatric admissions since he was here in April. He denies a history of suicide attempts. Family history: Patient denies any family history of mental illness. 10/28/16 Above note dictated by reviewed and agreed with. Patient seen by me with staff in his room continues to isolate covers of to his chin a marked delays in his responses as if responding to internal stimuli. Showing no insight into his issues are behavior with his family. Dr. Da Silva @first opinion petition supporting [place] act. I agree. Patient meets criteria for involuntary psychiatric hospitalization under the [place] act. I will sign second opinion petition supporting [place] act Chemical dependency history: Patient endorses regular use of cannabis. He says "I just do it." He becomes a little bit defensive on this point and seems pre- contemplative with respect to changing his pattern of use. Social history: Patient reports that he is living with his grandmother. He is single with no children. He has a 10th grade education. He is disabled. He does some yard work on the side. He denies any access to guns or firearms. He does endorse a history of legal problems in the past but denies any active legal issues. Past Family Social History Coded Allergies: No Known Allergies (Unverified , 05/05/16) Active Scripts Risperidone (Risperdal)3 Mg Tab6 Mg PO HS 14 Days Ref 1 Prov:Chris Kraft MD 05/11/16 Reported Medications Risperidone Inj (Risperdal Consta Inj)50 Mg Inj50 Mg IM Q14D #2 VIAL Ref 0 05/05/16 Risperidone (Risperdal)3 Mg Tab3 Mg PO HS #30 TAB Ref 0 05/05/16 Discontinued Reported Medications Benztropine 2 Mg Tab2 Mg PO HS #30 TAB Ref 0 05/06/16 Discontinued Scripts Benztropine 2 Mg Tab2 Mg PO HS 14 Days Ref 1 Prov:Chris Kraft MD 05/11/16 Current Medications Medications (Trade) Dose Ordered Sig/Berna Route Start Time Stop Time Status Last Admin (Tylenol) 650 mg Q4H PRN PO 10/27/16 11:15 (Milk Of Magnesia Liq) 30 ml DAILY PRN PO 10/27/16 11:15 (Mag-Al Plus Susp Liq) 30 ml Q6H PRN PO 10/27/16 11:15 Patient's Strengths (min. 2) In monitored setting. Verbally fluent. Physical Exam Vital Signs Vital Signs Date Time Temp Pulse Resp B/P Pulse Ox O2 Delivery O2 Flow Rate FiO2 10/28/16 06:08 98.1 68 18 114/75 98 10/27/16 13:19 Room Air Mental Status Examination Alert isolating guarded vigilant male Appearance Somewhat disheveled Speech: Hesitant, Slow Orientation: Person Memory: Unremarkable (fair) Thought Process: Loose Association Thought Content: Paranoid Language Poor Fund of Knowledge Poor Hallucination Type: None (appears to be responding to internal stimuli) Attention and Concentration: Other (poor) Suicidal Ideation: No (denies) Previous Suicide Attempts: No Homicidal Ideation: No (denies) Previous Homicide Attempts: No Insight: Poor Judgment: Poor Affect: Other (slight decrease range intensity) Mood: Other (restricted) Motor Activity: Normal gait Assessment & Plan Problem List: (1) Schizophrenia ICD Code: F20.9 (2) Cannabis abuse ICD Code: F12.10 Assessment & Plan Estimated LOS: days Request HC Surrog/Guard Advoc?: Yes Problem Qualifiers (1) Schizophrenia: Qualified Code: F20.0 - Paranoid schizophrenia Regulo Nick MD Oct 28, 2016 10:24
--- NOTE | 2016-10-28 16:20 | EKG ---
Date Performed: 10/28/2016 Time Performed: 14:36:04 PTAGE: 21 years EKG: SINUS BRADYCARDIA WITH SINUS ARRHYTHMIA INDETERMINATE AXIS POSSIBLE RIGHT VENTRICULAR CONDU CTION DELAY BORDERLINE ECG NO PREVIOUS TRACING DOCTOR: Pedro Saba Interpretating Date/Time 10/28/2016 16:19:06
[2016-10-28 17:53] LABS: HEMOGLOBIN A1b 1.2 %; HEMOGLOBIN LA1C 1.7 %; HEMOGLOBIN P3 2.9 %
[2016-10-28 18:03] VITALS: BP 116/55; PULSE 54; RESP 16; TEMP 98.4; O2SAT 97
[2016-10-28] MEDS: risperiDONE ODT 1 MG TAB PO SCH (21:33)
[2016-10-29 06:14] VITALS: BP 128/67; PULSE 64; RESP 18; TEMP 98; O2SAT 97
--- NOTE | 2016-10-29 09:06 | HHI.PYPN ---
Subjective Remarks Patient seen and examined with nurse. Chart reviewed. Case discussed with nursing staff who reports that the patient has been somewhat petulant when redirected by staff but otherwise no real behavioral problem. On my examination today, patient is less guarded and more conversant. He does admit to some VH of "stuff coming through a hole in the wall." He gestures to the wall, but there is no hole there that I can see. When I ask if he is hearing voices, he deflects the question and says instead how "mellow" the Risperdal is making him feel. He insists that he had some sort of antipsychotic injection in September, but [facility] has no record of him since April. I tried calling his grandmother to clarify if he was seen elsewhere, but the number on file kept ringing with no available VM. Patient denies side effects from medications and would like to titrate the Risperdal at night. No physical complaints besides mild headache in the morning, now gone, which he says is chronic. Review of Systems ROS Limitations: Poor Historian Except as stated in HPI: all other systems reviewed are Neg Objective Alert: Yes [place]: Person, Place Mood: Calm Affect: Blunted Memory Intact: Comment (not formally assessed) Hallucinations: Auditory (deflects, somewhat int stim), Visual (as above) Delusions: Yes Delusion Type: Paranoid (less) Suicidal: Ideation (No SI) Homicidal: Ideation (No HI) Insight/Judgment Poor Remarks No abnormal motor movements noted. Thought process fairly linear today. Grooming and hygiene fair. Labs Test 10/28/16 09:26 Sodium Level 140 MEQ/L Potassium Level 4.0 MEQ/L Chloride Level 103 MEQ/L Carbon Dioxide Level 31.4 MEQ/L Anion Gap 6 MEQ/L Blood Urea Nitrogen 10 MG/DL Creatinine 0.96 MG/DL Estimat Glomerular Filtration 118 ML/MIN Rate Random Glucose 107 MG/DL Hemoglobin A1c 4.8 % Calcium Level 9.4 MG/DL Triglycerides Level 46 MG/DL Cholesterol Level 146 MG/DL LDL Cholesterol 89 MG/DL HDL Cholesterol 48.1 MG/DL Cholesterol/HDL Ratio 3.03 RATIO BMP, lipid panel and hemoglobin A1c all unremarkable. Vitals/IOs Vital Signs Date Time Temp Pulse Resp B/P Pulse Ox O2 Delivery O2 Flow Rate FiO2 10/29/16 06:14 98.0 64 18 128/67 97 7/11/17 13:19 Room Air Assessment & Plan Problem List: (1) Schizophrenia ICD Code: F20.9 (2) Cannabis abuse ICD Code: F12.10 Assessment & Plan Given ambiguity about when patient last received long-acting injectable, I will stick with oral Risperdal for now, titrating to 1 mg in the morning and 2 mg at bedtime. Continue to monitor on the inpatient unit. Continue other medications and care as ordered. Justification for Cont. Inpt. Medication changes in process. High risk for decompensation in a less restrictive environment. Discharge Planning Pending psychiatric stabilization. Request HC Surrog/Guard Advoc?: Yes Problem Qualifiers (1) Schizophrenia: Qualified Code: F20.0 - Paranoid schizophrenia Kofi Da Silva MD Oct 29, 2016 09:06
[2016-10-29] MEDS: risperiDONE ODT 1 MG TAB PO SCH (09:31)
[2016-10-29 20:16] VITALS: BP 150/90; PULSE 115; RESP 18; TEMP 98; O2SAT 99
[2016-10-29] MEDS ORDERED: risperiDONE ODT 2 MG TAB PO SCH (21:00)
[2016-10-30 06:06] VITALS: BP 136/70; PULSE 91; RESP 18; TEMP 98; O2SAT 96
[2016-10-30] MEDS ORDERED: risperiDONE ODT 1 MG TAB PO SCH (09:00)
[2016-10-30] MEDS ORDERED: RISP1 PO (09:09)
[2016-10-30] MEDS ORDERED: RISP25P IM (09:09)
--- NOTE | 2016-10-30 09:09 | HHI.DS ---
Psychiatry Discharge Summary Inpatient Psychiatric care?: Yes Advance Directive: No Reason Not Provided: DOES NOT HAVE Mental Health AdvanceDirective: No Health Care Proxy: No Admission Admission Date Oct 27, 2016 at 11:15 Admission Diagnosis: (1) Schizophrenia ICD Code: F20.9 (2) Cannabis abuse ICD Code: F12.10 Brief History Mr. Salomon is a 21-year-old male with a history of schizophrenia and cannabis use issues who presents under an ex parte order initiated by his grandmother Ms. Tucker alleging that the patient has been internally preoccupied and paranoid and has been increasingly rageful. Reviewing the electronic medical record, I note that the patient was admitted most recently under Dr. Kraft in April of this year, stabilized on Risperdal at that time. Patient seen and examined with counselor and nurse. Chart reviewed. Case discussed with nursing staff. On my examination today, the patient presents as guarded and paranoid. He keeps the covers over his head for much of the interview. He says that he was sent into the hospital he cut see has been "helping" his grandmother. He admits that he has been nonadherent with psychotropic medications for the last 2 months but cannot say why he is not taking them. He does not describe any side effects from the medications when he was taking them. He denies any audiovisual hallucinations but appears frankly internally preoccupied. I can elicit no feelings of ideas of reference or thought insertion/withdrawal. He denies any suicidal ideation or homicidal ideation but seems unreliable to contract for safety. He is unable to describe his mood and his affect is quite flat. He is generally hypoverbal. Thought process slowed with some thought blocking. Remainder of the psychiatric ROS is negative. Past psychiatric history: Patient has a history of schizophrenia and cannabis use. He is unsure of whether he is under psychiatric care on an outpatient basis. He denies a history of interval psychiatric admissions since he was here in April. He denies a history of suicide attempts. Family history: Patient denies any family history of mental illness. Chemical dependency history: Patient endorses regular use of cannabis. He says "I just do it." He becomes a little bit defensive on this point and seems pre- contemplative with respect to changing his pattern of use. Social history: Patient reports that he is living with his grandmother. He is single with no children. He has a 10th grade education. He is disabled. He does some yard work on the side. He denies any access to guns or firearms. He does endorse a history of legal problems in the past but denies any active legal issues. Tobacco Use In Past 30 Days: 5 or More Cigarettes/Day Alcohol Use: Monthly or Less Hospital Course The patient was admitted to a locked, inpatient psychiatric unit. Appropriate precautions were in place throughout patient's hospital stay. The patient was seen and examined daily on the unit by psychiatry and also visited by counselor. Psychotropic medications were adjusted. Patient tolerated medication changes well without side effects. Patient had improvement in presenting psychiatric symptomatology during the course of his hospital stay. There was no evidence of any suicidal or homicidal behavior on the inpatient unit. Patient remained in generally good behavioral control. He was compliant with medications. On the day of discharge: Patient seen and examined. Chart reviewed. Case discussed with nursing staff reports the patient is much improved and has been no behavioral problem on the unit. On my examination today, the patient requests discharge from the inpatient psychiatric unit. He denies any suicidal or homicidal ideation, intent or plan on direct questioning and contracts for safety. No issues with mood. No depressive or hypomanic/ manic symptoms. He denies audiovisual hallucinations. No delusions elicited. Denies side effects from medications. Agreeable to receiving long-acting injectable Risperdal prior to discharge, and we did confirm that his last dose was no later than July of this year. No physical complaints. Counselor has reached out to patient's grandmother who verbalized no safety concerns but did express concerns regarding medication nonadherence, and the counselor did explain that we will be starting long-acting injectable antipsychotic prior to discharge. Weighing the relevant factors and based on the available evidence, I hydrogenation still operator that the patient is at low imminent risk of harm to self or others from a mental illness as defined under the [place] act and his level of function is adequate for outpatient care. Consequently, the patient does not meet criteria for ongoing involuntary psychiatric hospitalization at this time. Given that he does not meet criteria for involuntary psychiatric hospitalization at this time and given that he is requesting discharge from the inpatient psychiatric unit today, I will arrange for his discharge home with psychiatric follow-up as arranged by counselor. Patient is also to follow-up with primary care. I have counseled the patient to abstain from substances of abuse and have explained that I think that his cannabis use was a large part of his presenting psychotic decompensation. I have counseled the patient to return to the psychiatric emergency room for any concerning psychiatric complaints as part of a general safety plan. Results Blood Pressure 136 / 70 Vital Signs Date Time Temp Pulse Resp B/P Pulse Ox O2 Delivery O2 Flow Rate FiO2 10/30/16 06:06 98.0 91 18 136/70 96 10/27/16 13:19 Room Air Laboratory Tests Test 10/28/16 09:26 Random Glucose 107 MG/DL (74-106) Laboratory Results Test 10/28/16 09:26 Hemoglobin A1c 4.8 % (4.3-6.0) Triglycerides Level 46 MG/DL (42-150) Cholesterol Level 146 MG/DL (120-200) LDL Cholesterol 89 MG/DL (0-99) HDL Cholesterol 48.1 MG/DL (40.0-60.0) Summary of Procedures None done Imaging None done Pending results at discharge: No Medications # of Antipsychotic meds at D/C: 1 Approp Antipsych med options 1 - Minimum of three failed multiple trials of monotherapy. 2 - Documented plan to taper to monotherapy due to previous use of multiple meds OR cross-taper in progress at D/C. 3 - Documentation of augmentation of Clozapine. 4 - Justification other than those listed in allowable values 1-3, document here : Discharge Discharge Date: Oct 30, 2016 Discharge Diagnosis: (1) Schizophrenia Diagnosis: Principal (likely component of substance induced psychosis. Stabilized.) ICD Code: F20.9 (2) Cannabis abuse Diagnosis: Secondary (counseled to quit) ICD Code: F12.10 GAF 55 Mental Status Exam at Disch Patient is casually dressed. He is well groomed. He is awake and alert and oriented to person and hospital at least. No abnormal motor movements noted. Speech is within normal limits for rate, tone and volume. Mood is fair and affect is blunted. Thought process much more linear today versus admission. No loosening of associations. No delusions elicited. Denies audiovisual hallucinations. Denies suicidal or homicidal ideation, intent or plan. Insight and judgment are likely chronically poor. Pt Condition on Discharge: Stable Discharge Disposition: Discharge Home Discharge Instructions Diet Instructions: As Tolerated, No Restrictions Activities you can perform: Weight Bearing as Zach Scheduled Appointment: as per counselor's notes New Medications: Risperidone Inj (Risperdal Consta Inj) 25 Mg Inj 25 MG IM Q14D This dose of Risperdal Consta due on 11/13/16. Mental Health #2 Ref 0 VIAL Risperidone (Risperdal) 1 Mg Tab 1 MG PO DIRECTED 1mg PO qAM and 2mg PO qHS. Continue taking oral Risperdal for at least 3 weeks, or as instructed by outpatient provider. Be sure to get next Risperdal Consta injection. Mental Health Days 15 Ref 1 TAB Discontinued Medications: Risperidone (Risperdal) 3 Mg Tab 3 MG PO HS #30 Ref 0 TAB Risperidone Inj (Risperdal Consta Inj) 50 Mg Inj 50 MG IM Q14D #2 Ref 0 VIAL Risperidone (Risperdal) 3 Mg Tab 6 MG PO HS hallucinations Days 14 Ref 1 TAB Discharge Time <= 30 minutes Discharge/Advance Care Plan Health Problems: (1) Schizophrenia (2) Cannabis abuse Goals to promote your health * To prevent worsening of your condition and complications * To maintain your health at the optimal level Directions to meet your goals Take your medications as prescribed Follow your dietary instruction Follow activity as directed Keep your appointments as scheduled Take your immunizations and boosters as scheduled If your symptoms worsen call your PCP, if no PCP go to Urgent Care Center or Emergency Room For 09/11 questions related to your inpatient stay or results of tests pending at discharge, please contact Dr. Kofi Da Silva at Smoking is Dangerous to Your Health. Avoid second hand smoking Problem Qualifiers (1) Schizophrenia: Qualified Code: F20.0 - Paranoid schizophrenia Kofi Da Silva MD Oct 30, 2016 09:09
[2016-10-30] MEDS ORDERED: risperiDONE EXT REL INJ 25 MG/2 ML VIAL IM ONE (09:15)
== END 2016-10-30 11:25 | disposition home or self-care (01) | DRG 885 ==
LOC: NEDAMB 17:16 → NEDA 10-27 11:15 → H270 10-27 13:17
PROVIDERS: ADMIT Psychiatry & Neurology Psychiatry; ATTEND Psychiatry & Neurology Psychiatry
DX: F20.0 Paranoid schizophrenia (principal); Z91.14 Patient's other noncompliance with medication regimen; F12.10 Cannabis abuse, uncomplicated
CPT/HCPCS: 80048; 80053; 80061; 80307; 81001; 83036; 85025; 93005; J2794

== ENCOUNTER 2017-07-07 15:22 | Inpatient (IN) | payer MEDICAID, OTHER ==
[~2017-07-07] VITALS: Ht 185.4 cm; Wt 67.9 kg
[~2017-07-07 15:22] MED LIST changes: -BENZ2TAB PO; +RISP1 PO; +RISP25P IM; -RISP3 PO; -RISP50P IM
[2017-07-07 15:33] VITALS: BP 162/86; PULSE 78; RESP 16; TEMP 98.2; O2SAT 98
--- NOTE | 2017-07-07 15:53 | PD ---
HPI Chief Complaint: Psychiatric Symptoms Time Seen by Provider: 15:36 Travel History International Travel<30 days: No Contact w/Intl Traveler<30days: No Traveled to known affect area: No History of Present Illness HPI 22-year-old male presents to the emergency department under ex parte by his family member for psychiatric evaluation. According to the ex parte, the patient has punched a hole in the wall recently, has not been taking his medications. The patient reports history of bipolar disorder and anxiety. He states he is taking his medications. Patient denies any current suicidal or homicidal ideation. At first, he states that he has hallucinations, but then he says that he just "talks a lot". He denies any illicit drug use. Moderate severity. PFSH Past Medical History Asthma: Yes Anxiety: Yes Depression: Yes Cancer: No Cardiovascular Problems: Yes Chest Pain: Yes COPD: No Diabetes: No Diminished Hearing: No Endocrine: No Genitourinary: No Headaches: Yes Immune Disorder: No Musculoskeletal: Yes Neurologic: Yes Psychiatric: Yes Reproductive: No Respiratory: Yes (NASAL CONGESTION) Immunizations Current: Yes Sleep Apnea: No Social History Alcohol Use: Yes Tobacco Use: Yes Substance Use: Yes (POT) Allergies-Medications (Allergen,Severity, Reaction): Coded Allergies: No Known Allergies (Unverified , 05/05/16) Reported Meds & Prescriptions Reported Meds & Active Scripts Active Risperdal Consta Inj (Risperidone) 25 Mg Inj 25 Mg IM Q14D This dose of Risperdal Consta due on 11/13/16. Risperdal (Risperidone) 1 Mg Tab 1 Mg PO DIRECTED 15 Days 1mg PO qAM and 2mg PO qHS. Continue taking oral Risperdal for at least 3 weeks, or as instructed by outpatient provider. Be sure to get next Risperdal Consta injection. Review of Systems Except as stated in HPI: all other systems reviewed are Neg Physical Exam Narrative GENERAL: Well-nourished, well-developed male patient, ambulatory. Afebrile. SKIN: Focused skin assessment warm/dry. HEAD: Normocephalic. Atraumatic. EYES: No scleral icterus. No injection or drainage. NECK: Supple, trachea midline. No JVD or lymphadenopathy. CARDIOVASCULAR: Regular rate and rhythm without murmurs, gallops, or rubs. RESPIRATORY: Breath sounds equal bilaterally. No accessory muscle use. Lung sounds are clear to auscultation. GASTROINTESTINAL: Abdomen soft, non-tender, nondistended. MUSCULOSKELETAL: No cyanosis, or edema. PSYCHIATRIC: No delusional thought processes. No hallucinations. Data Data Last Documented VS Vital Signs Date Time Temp Pulse Resp B/P (MAP) Pulse Ox O2 Delivery O2 Flow Rate FiO2 07/07/17 16:45 99.0 78 16 124/79 (94) 100 Room Air Orders Orders Complete Blood Count With Diff (07/07/17 15:31) Comprehensive Metabolic Panel (07/07/17 15:31) Psych Screen (07/07/17 15:31) Drug Screen, Random Urine (07/07/17 15:31) Alcohol (Ethanol) (07/07/17 15:31) Tylenol (Acetaminophen) (07/07/17 15:31) Salicylates (Aspirin) (07/07/17 15:31) Urinalysis - C+S If Indicated (07/07/17 15:31) Urine Culture (07/07/17 15:37) Diet Regular Basic (07/07/17 Dinner) Labs Laboratory Tests Test 07/07/17 15:37 White Blood Count 8.5 TH/MM3 Red Blood Count 4.52 MIL/MM3 Hemoglobin 14.2 GM/DL Hematocrit 42.1 % Mean Corpuscular Volume 93.1 FL Mean Corpuscular Hemoglobin 31.4 PG Mean Corpuscular Hemoglobin Concent 33.8 % Red Cell Distribution Width 12.7 % Platelet Count 206 TH/MM3 Mean Platelet Volume 8.1 FL Neutrophils (%) (Auto) 57.8 % Lymphocytes (%) (Auto) 35.2 % Monocytes (%) (Auto) 5.9 % Eosinophils (%) (Auto) 0.4 % Basophils (%) (Auto) 0.7 % Neutrophils # (Auto) 4.9 TH/MM3 Lymphocytes # (Auto) 3.0 TH/MM3 Monocytes # (Auto) 0.5 TH/MM3 Eosinophils # (Auto) 0.0 TH/MM3 Basophils # (Auto) 0.1 TH/MM3 CBC Comment DIFF FINAL Differential Comment Urine Color YELLOW Urine Turbidity CLEAR Urine pH 6.5 Urine Specific [place] 1.005 Urine Protein NEG mg/dL Urine Glucose (UA) NEG mg/dL Urine Ketones NEG mg/dL Urine Occult Blood NEG Urine Nitrite NEG Urine Bilirubin NEG Urine Urobilinogen 2.0 MG/DL Urine Leukocyte Esterase LARGE Urine RBC 1 /hpf Urine WBC 19 /hpf Urine WBC Clumps RARE Urine Squamous Epithelial Cells <1 /hpf Microscopic Urinalysis Comment CULTURE INDICATED Blood Urea Nitrogen 6 MG/DL Creatinine 0.89 MG/DL Random Glucose 91 MG/DL Total Protein 7.5 GM/DL Albumin 4.2 GM/DL Calcium Level 9.3 MG/DL Alkaline Phosphatase 96 U/L Aspartate Amino Transf (AST/SGOT) 18 U/L Alanine Aminotransferase (ALT/SGPT) 17 U/L Total Bilirubin 0.5 MG/DL Sodium Level 143 MEQ/L Potassium Level 3.9 MEQ/L Chloride Level 108 MEQ/L Carbon Dioxide Level 26.1 MEQ/L Anion Gap 9 MEQ/L Estimat Glomerular Filtration Rate 127 ML/MIN Salicylates Level 4.8 MG/DL Urine Opiates Screen NEG Acetaminophen Level LESS THAN 2.0 MCG/ML Urine Barbiturates Screen NEG Urine Amphetamines Screen NEG Urine Benzodiazepines Screen NEG Urine Cocaine Screen NEG Urine Cannabinoids Screen POS Ethyl Alcohol Level LESS THAN 3 MG/DL MDM Medical Decision Making Medical Screen Exam Complete: Yes Emergency Medical Condition: Yes Medical Record Reviewed: Yes Differential Diagnosis Bipolar disorder versus schizophrenia versus anxiety versus medication noncompliance Narrative Course 22-year-old male presents to the emergency department next particular order. Patient reports history of bipolar disorder anxiety, but according to the chart , it appears he has a history of schizophrenia. CBC, CMP, urine drug screen, alcohol level, Tylenol level, salicylate level, UA ordered and pending. CBC is unremarkable. CMP shows no acute abnormality. UDS is positive for cannabinoids. Alcohol level is less than 3. Tylenol level is less than 2.0. Salicylate level is 4.8. Patient is medically cleared for psychiatric screening and disposition Diagnosis Primary Impression: Medical clearance for psychiatric admission Condition: Stable Milena SalomonP Jul 07, 2017 15:53
[2017-07-07 16:00] LABS: AUTOMATED NEUTROPHIL # 4.9 TH/MM3 (1.8-7.7); BASOPHIL # 0.1 TH/MM3 (0-0.2); BASOPHIL % 0.7 % (0.0-2.0); EOSINOPHIL % 0.4 % (0.0-4.0); HEMATOCRIT 42.1 % (39.0-51.0); HEMOGLOBIN 14.2 GM/DL (13.0-17.0); LYMPH % 35.2 % (9.0-44.0); MEAN CELL VOLUME 93.1 FL (80.0-100.0); MEAN CORPUSCULAR HEMOGLOBIN 31.4 PG (27.0-34.0); MEAN CORPUSCULAR HGB CONC 33.8 % (32.0-36.0); MEAN PLATELET VOLUME 8.1 FL (7.0-11.0); MONO % 5.9 % (0.0-8.0); MONOCYTE # 0.5 TH/MM3 (0-0.9); NEUT % 57.8 % (16.0-70.0); PLATELET COUNT 206 TH/MM3 (150-450); RED BLOOD COUNT 4.52 MIL/MM3 (4.50-5.90); RED CELL DISTRIBUTION WIDTH 12.7 % (11.6-17.2); WHITE BLOOD COUNT 8.5 TH/MM3 (4.0-11.0)
[2017-07-07 16:11] LABS: BILIRUBIN, URINE NEG (NEG); BLOOD, URINE NEG (NEG); GLUCOSE,URINE NEG (NEG); KETONE, URINE NEG (NEG); NITRITE,URINE NEG (NEG); PH, URINE 6.5 (5.0-8.5); SQUAMOUS EPITHELIAL CELL URINE <1 /hpf (0-5); URINE COLOR YELLOW (YELLW/STRAW); URINE LEUKOCYTE ESTERASE LARGE (NEG); WHITE BLOOD CELL CLUMPS RARE
[2017-07-07 16:28] LABS: ALBUMIN 4.2 GM/DL (3.4-5.0); AST (GOT) 18 U/L (15-37); BICARBONATE 26.1 MEQ/L (21.0-32.0); BLOOD UREA NITROGEN 6 MG/DL (7-18); CALCIUM 9.3 MG/DL (8.5-10.1); CHLORIDE 108 MEQ/L (98-107); CREATININE 0.89 MG/DL (0.60-1.30); GLOMERULAR FILTRATION RATE 127 ML/MIN (>89); GLUCOSE,RANDOM 91 MG/DL (74-106); SODIUM (NA) 143 MEQ/L (136-145)
[2017-07-07 16:31] LABS: ACETAMINOPHEN LESS THAN 2.0 MCG/ML (10.0-30.0); ALKALINE PHOSPHATASE 96 U/L (45-117); ALT (GPT) 17 U/L (12-78); TOTAL BILIRUBIN ADULT 0.5 MG/DL (0.2-1.0); TOTAL PROTEIN 7.5 GM/DL (6.4-8.2)
[2017-07-07 16:45] VITALS: BP 124/79; PULSE 78; RESP 16; TEMP 99; O2SAT 100
[2017-07-07 23:53] VITALS: BP 121/63; PULSE 68; RESP 16; O2SAT 100
[2017-07-08 06:43] VITALS: BP 127/59; PULSE 79; RESP 16; O2SAT 98
[2017-07-08 13:28] VITALS: BP 131/71; PULSE 55; RESP 16; TEMP 98.3; O2SAT 97
--- NOTE | 2017-07-08 15:31 | PD ---
History of Present Illness Chief Complaint: Psychiatric Symptoms Time Seen by Provider: 14:50 Travel History International Travel<30 Days: No Contact w/Intl Traveler<30days: No Known affected area: No Legal Status Legal Status: Ex Parte History of Present Illness: History of Present Illness HPI 22-year-old, , single male with history of schizophrenia and cannabis use disorder who presents to the emergency department under ex parte order. His grandmother, Mrs. Jodee Carrington, alleges that the patient "has been increasingly agitated and that he punched a hole in a door, has started talking to himself, threatening to hurt others, he does not take his medications , he stays mad all the time." The patient does admit to being more angry with other family members as well as admitting that he has not been taking his medication on a consistent basis. He agrees that he needs to be in the hospital in order to get back on medication and states" I'm not thinking right and I need medicine to help me get to a slow pace". Electronic medical record is reviewed. The patient has had several admissions to our inpatient psychiatric unit and his admissions are usually prompted by his family members obtaining an ex parte order. His last admission was in October 2016 and he was under the care of Dr. Wagner. Our counseling case manager Travis confirmed with [facility] that he picked up medications from their pharmacy in June 2017. This included Risperdal 3 mg. Current toxicology is positive for cannabinoids. The patient is seen in J pod. He is in bed with the sheets over his head but he does agree to speak with us and uncovers his head. His speech is clear, he has difficulty formulating his thoughts and answering basic questions that time. He denies that he is hearing voices but does state that he talks to himself in order to get his thoughts" straight". He endorses recent increase in irritability and some aggressive actions. He is suspicious but that paranoia and suspiciousness is limited to his "weed dealer ". He tells me that he is concerned about him mixing up his weed with heroin or other drugs and so he feels he needs to" set him straight". He states he sleeping well and has a good appetite. Denies any suicidal or homicidal ideation, intent or plan. Remainder of review of systems is negative. PFSH Past Medical History Asthma: Yes Bipolar Disorder: Yes Anxiety: Yes Depression: Yes Cancer: No Cardiovascular Problems: Yes Chest Pain: Yes COPD: No Diabetes: No Diminished Hearing: Yes Endocrine: No Genitourinary: No Headaches: Yes Immune Disorder: No Musculoskeletal: Yes Neurologic: Yes Psychiatric: Yes Reproductive: No Respiratory: Yes (NASAL CONGESTION) Immunizations Current: No (unknown) Sleep Apnea: No Tetanus Vaccination: Unknown Influenza Vaccination: No ?: Not Past Surgical History Surgical History: No Previous Surgery Other Surgery: No Psychiatric History Psychiatric History Hx Psychiatric Treatment: History of previous hospitalizations at [facility]. Receives outpatient care at [facility]. Last documented visit to [facility] was in April 2016. He did strip picker medications at the pharmacy last month. History of Inpatient Treatment: Yes Guns or firearms in home: No Social History Hx Alcohol Use: No Hx Tobacco Use: Yes (1/2 pack day) Hx Substance Use: Yes (Marijuana last used 07/05/17) Substance Use Type: Marijuana Other Substances Used: SMOKES MARIJUANA DAILY Hx of Substance Use Treatment: No Family Psychiatric History Negative Allergies-Medications (Allergen,Severity, Reaction): Coded Allergies: No Known Allergies (Unverified , 05/05/16) Reported Meds & Prescriptions Reported Meds & Active Scripts Active Risperdal Consta Inj (Risperidone) 25 Mg Inj 25 Mg IM Q14D This dose of Risperdal Consta due on 11/13/16. Risperdal (Risperidone) 1 Mg Tab 1 Mg PO DIRECTED 15 Days 1mg PO qAM and 2mg PO qHS. Continue taking oral Risperdal for at least 3 weeks, or as instructed by outpatient provider. Be sure to get next Risperdal Consta injection. Review of Systems Psychiatric: COMPLAINS OF: Hallucinations, Agitation Except as stated in HPI: all other systems reviewed are Neg Mental Status Examination Appearance: Appropriate (in paper scrubs maintaining basic hygiene) Consciousness: Alert Orientation: x4 Motor Activity: Normal gait Speech: Slow Language: Adequate Fund of Knowledge: Adequate Attention and Concentration: Inadequate Memory: Unremarkable Mood: Appropriate Affect: Appropriate Thought Process & Associations: Other (at times somewhat disorganized) Thought Content: Other (suspicious) Hallucination Type: None (he denies but is observed talking to himself) Delusion Type: None Suicidal Ideation: No Suicidal Plan: No Suicidal Intention: No Homicidal Ideation: No Homicidal Plan: No Homicidal Intention: No Insight: Poor Judgment: Impulsive MDM Medical Decision Making Medical Record Reviewed: Yes Assessment/Plan 22-year-old, , single male with history of schizophrenia and cannabis use disorder who presents to the emergency department under ex parte order. His grandmother, Mrs. Jodee Carrington, alleges that the patient "has been increasingly agitated and that he punched a hole in a door, has started talking to himself, threatening to hurt others, he does not take his medications , he stays mad all the time." The patient does admit to being more angry with other family members as well as admitting that he has not been taking his medication on a consistent basis. He agrees that he needs to be in the hospital in order to get back on medication and states" I'm not thinking right and I need medicine to help me get to a slow pace". Patient at this time is noncompliant with his prescribed outpatient treatment. There is concern from family members that he is becoming more agitated and aggressive. Patient admits that he needs to get back on medication in order to get his" thinking back on right". This time the patient meets criteria for inpatient psychiatric treatment for further observation, for safety and for stabilization. Patient may unaffected from a long acting injectable medication due to poor compliance with prescribed treatment. Orders Orders Complete Blood Count With Diff (07/07/17 15:31) Comprehensive Metabolic Panel (07/07/17 15:31) Psych Screen (07/07/17 15:31) Drug Screen, Random Urine (07/07/17 15:31) Alcohol (Ethanol) (07/07/17 15:31) Tylenol (Acetaminophen) (07/07/17 15:31) Salicylates (Aspirin) (07/07/17 15:31) Urinalysis - C+S If Indicated (07/07/17 15:31) Urine Culture (07/07/17 15:37) Diet Regular Basic (07/07/17 Dinner) Diet Regular Basic (07/08/17 Breakfast) Diet Regular Basic (07/08/17 Lunch) Diet Regular Basic (07/08/17 Dinner) Results Vital Signs Date Time Temp Pulse Resp B/P (MAP) Pulse Ox O2 Delivery O2 Flow Rate FiO2 07/08/17 13:28 98.3 55 16 131/71 (91) 97 Room Air 07/08/17 06:43 79 16 127/59 (81) 98 07/07/17 23:53 68 16 121/63 (82) 100 Room Air 07/07/17 16:45 99.0 78 16 124/79 (94) 100 Room Air 07/07/17 15:33 98.2 78 16 162/86 (111) 98 Laboratory Tests Test 07/07/17 15:37 White Blood Count 8.5 Red Blood Count 4.52 Hemoglobin 14.2 Hematocrit 42.1 Mean Corpuscular Volume 93.1 Mean Corpuscular Hemoglobin 31.4 Mean Corpuscular Hemoglobin Concent 33.8 Red Cell Distribution Width 12.7 Platelet Count 206 Mean Platelet Volume 8.1 Neutrophils (%) (Auto) 57.8 Lymphocytes (%) (Auto) 35.2 Monocytes (%) (Auto) 5.9 Eosinophils (%) (Auto) 0.4 Basophils (%) (Auto) 0.7 Neutrophils # (Auto) 4.9 Lymphocytes # (Auto) 3.0 Monocytes # (Auto) 0.5 Eosinophils # (Auto) 0.0 Basophils # (Auto) 0.1 CBC Comment DIFF FINAL Differential Comment Urine Color YELLOW Urine Turbidity CLEAR Urine pH 6.5 Urine Specific [place] 1.005 Urine Protein NEG Urine Glucose (UA) NEG Urine Ketones NEG Urine Occult Blood NEG Urine Nitrite NEG Urine Bilirubin NEG Urine Urobilinogen 2.0 Urine Leukocyte Esterase LARGE Urine RBC 1 Urine WBC 19 Urine WBC Clumps RARE Urine Squamous Epithelial Cells <1 Microscopic Urinalysis Comment CULTURE INDICATED Blood Urea Nitrogen 6 Creatinine 0.89 Random Glucose 91 Total Protein 7.5 Albumin 4.2 Calcium Level 9.3 Alkaline Phosphatase 96 Aspartate Amino Transf (AST/SGOT) 18 Alanine Aminotransferase (ALT/SGPT) 17 Total Bilirubin 0.5 Sodium Level 143 Potassium Level 3.9 Chloride Level 108 Carbon Dioxide Level 26.1 Anion Gap 9 Estimat Glomerular Filtration Rate 127 Salicylates Level 4.8 Urine Opiates Screen NEG Acetaminophen Level LESS THAN 2.0 Urine Barbiturates Screen NEG Urine Amphetamines Screen NEG Urine Benzodiazepines Screen NEG Urine Cocaine Screen NEG Urine Cannabinoids Screen POS Ethyl Alcohol Level LESS THAN 3 Date/Time Source Procedure Growth Status 07/07/17 15:37 Urine Clean Catch Urine Culture - Preliminary NO GROWTH IN 24 HOURS. Resulted Diagnosis Primary Impression: Schizophrenia Additional Impression: Cannabis abuse Admitting Information Admitting Physician Requests: Admit Condition: Stable Problem Qualifiers Primary Impression: Schizophrenia Qualified Codes: F20.9 - Schizophrenia, unspecified Archana Corona ORDER WORKER Jul 08, 2017 15:31
[2017-07-08] MEDS ORDERED: MAGNESIUM HYDROXIDE SUSP 30 ML CUP PO PRN (15:45)
[2017-07-08] MEDS ORDERED: ACETAMINOPHEN 325 MG TAB PO PRN (15:45)
[2017-07-08] MEDS ORDERED: ALUMINUM/MAGNESIUM/SIMETH 30 ML CUP PO PRN (15:45)
[2017-07-08 17:03] VITALS: BP 137/85; PULSE 74; RESP 18; TEMP 98.4; O2SAT 95
[2017-07-09 06:11] VITALS: PULSE 75; RESP 16; TEMP 98.2; O2SAT 99
--- NOTE | 2017-07-09 12:08 | HHI.HP ---
Provisional Diagnosis Admission Date Jul 08, 2017 at 15:23 [place] I. 1. Schizophrenia, undifferentiated type, acute exacerbation 2. Cannabis abuse [place] II. Deferred Certification of Person's Competence To Provide Express and Informed Consent I have personally examined Danny Pimentel III , a person being served at [facility] on, Jul 09, 2017 12:08. Express and informed consent means consent voluntarily given in writing, by a competent person, after sufficient explanation and disclosure of the subject matter involved to enable the person to make a knowing and willful decision without any element of force, fraud, deceit, duress, or other form of constraint or coercion. This person is 18 years of age or older, is not now known to be incompetent to consent to treatment with a guardian advocate, and does not have a health care surrogate or proxy currently making medical treatment decisions. I have found this person to be one of the following: [] Competent to provide express and informed consent, as defined above, for voluntary admission to this facility and is competent to provide express and informed consent for treatment. He/she has the consistent capacity to make well reasoned, willful, and knowing decisions concerning his or her medical or mental health treatment. The person fully and consistently understands the purpose of the admission for examination/placement and is fully capable of personally exercising all rights assured [place] [x] Incompetent to provide express and informed consent to voluntary admission, and this is incompetent to provide express and informed consent to treatment. The person must be transferred to involuntary status and a petition for a guardian advocate filed with the Circuit Court. [] Refusing to provide express and informed consent to voluntary admission but is competent to provide express and informed consent for treatment. The person must be discharged or transferred to involuntary status. Form shall be completed within 24 hours of a person's arrival at the receiving facility and filed in the clinical record of each person: 1. Admitted on a voluntary basis 2. Permitted to provide express and informed consent to his/her own treatment 3. Allowed to transfer from involuntary to voluntary status 4. Prior to permitting a person to consent to his or her own treatment after having been previously found incompetent to consent to treatment. History of Present Illness Capacity: Lacks Capacity Psych Chief Complaint: Psychosis HPI Mr. Pimentel is a 22-year-old male with a history of schizophrenia who presents under an ex parte order initiated by his grandmother alleging destruction of property. Reviewing the electronic medical record, I note patient was admitted under my care in October 2016. Patient seen and examined with counselor. Chart reviewed. Case discussed with nursing staff. On my examination today, I find the patient out for fresh air. He is sitting on the periphery, interacting little with other people. He appears internally preoccupied. He is delayed in his responses and exhibits poor eye contact. He is fairly irritable. He says "I just need good meds to set my mind right." He exhibits some thought blocking. He denies AVH. He is guarded. He denies suicidal or homicidal ideation. No mood symptoms. Remainder of the psychiatric ROS is negative. No acute physical complaints. Past psychiatric history: Patient has history of schizophrenia. He follows at [facility]. He reports that he takes Risperdal 3 mg at bedtime. His most recent psychiatric admission was here at [place]. He denies a history of suicide attempts. Family history: Patient denies any family history of serious mental illness or suicide. Chemical dependency history: The patient denies any abuse of drugs or alcohol although he has a history of cannabis abuse and his urine toxicology is once again positive for cannabinoids. Social history: The patient lives with his grandmother. He is single with no children. He has a 10th grade education. He says that he is looking for work. He is on SSI. He denies any history. Denies any legal history. Denies any access to guns or firearms. Denies any anglican or spiritual beliefs. No reported trauma history. Obtain collateral information from the patient's grandmother. She notes that the patient has been nonadherent with oral medications and has been conversing with "an imaginary friend." He has apparently been increasingly irritable and agitated, slamming doors and putting a hole in grandmother's wall. Grandmother is willing to act as healthcare surrogate and is in agreement with the plan as outlined below. She notes that the patient is on a long-acting injectable but is not sure of the name, date of last administration or dose. Review of Systems ROS Limitations: Psychotic, Poor Historian Except as stated in HPI: all other systems reviewed are Neg Past Family Social History Coded Allergies: No Known Allergies (Unverified , 05/05/16) Past Medical History Patient denies any past medical history Active Scripts Risperidone Inj (Risperdal Consta Inj) 25 Mg Inj, 25 MG IM Q14D for Mental Health, #2 VIAL 0 Refills This dose of Risperdal Consta due on 11/13/16. Prov:Kofi Da Silva MD 10/30/16 Risperidone (Risperdal) 1 Mg Tab, 1 MG PO DIRECTED for Mental Health for 15 Days, TAB 1 Refill 1mg PO qAM and 2mg PO qHS. Continue taking oral Risperdal for at least 3 weeks, or as instructed by outpatient provider. Be sure to get next Risperdal Consta injection. Prov:oKfi Da Silva MD 10/30/16 Current Medications Medications (Trade) Dose Ordered Sig/Berna Route Start Time Stop Time Status Last Admin (Tylenol) 650 mg Q4H PRN PO 07/08/17 15:45 (Milk Of Magnesia Liq) 30 ml DAILY PRN PO 07/08/17 15:45 (Mag-Al Plus Susp Liq) 30 ml Q6H PRN PO 07/08/17 15:45 Patient's Strengths (min. 2) In a monitored setting. Verbally fluent. Physical Exam Physical exam completed by ED provider. On my examination today, the patient appears to be in no acute physical distress. No motor abnormalities noted. Labs and vitals reviewed: Vital Signs Vital Signs Date Time Temp Pulse Resp B/P (MAP) Pulse Ox O2 Delivery O2 Flow Rate FiO2 07/09/17 06:11 98.2 75 16 99 07/08/17 13:28 Room Air Lab Results Date/Time Source Procedure Growth Status 07/07/17 15:37 Urine Clean Catch Urine Culture - Final NO GROWTH IN 48 HOURS. Complete Item Value Date Time White Blood Count 8.5 TH/MM3 07/07/17 1537 Hemoglobin 14.2 GM/DL 07/07/17 1537 Platelet Count 206 TH/MM3 07/07/17 1537 Sodium Level 140 MEQ/L 07/09/17 1210 Potassium Level 3.9 MEQ/L 07/09/17 1210 Chloride Level 103 MEQ/L 07/09/17 1210 Carbon Dioxide Level 29.4 MEQ/L 07/09/17 1210 Anion Gap 8 MEQ/L 07/09/17 1210 Blood Urea Nitrogen 9 MG/DL 07/09/17 1210 Creatinine 0.99 MG/DL 07/09/17 1210 Estimat Glomerular Filtration Rate 113 ML/MIN 07/09/17 1210 Random Glucose 93 MG/DL 07/09/17 1210 Aspartate Amino Transf (AST/SGOT) 18 U/L 07/07/17 1537 Alanine Aminotransferase (ALT/SGPT) 17 U/L 07/07/17 1537 Alkaline Phosphatase 96 U/L 07/07/17 1537 Urine Cannabinoids Screen POS H 07/07/17 1537 Ethyl Alcohol Level LESS THAN 3 MG/DL 07/07/17 1537 Mental Status Examination Appearance: Disheveled Consciousness: Alert, Vigilant Orientation: x4 Motor Activity: Normal gait Speech: Slow Language: Adequate Fund of Knowledge: Adequate Attention and Concentration: Inadequate Memory: Unremarkable Mood: Irritable Affect: Irritable Thought Process & Associations: Other (slowed) Thought Content: Thought blocking Hallucination Type: Other (appears internally stimulated) Delusion Type: Paranoid Suicidal Ideation: No (unreliable to contract for safety) Suicidal Plan: No Suicidal Intention: No Homicidal Ideation: No Homicidal Plan: No Homicidal Intention: No Insight: Poor Judgment: Poor Assessment & Plan Problem List: (1) Schizophrenia ICD Codes: F20.9 - Schizophrenia, unspecified Status: Acute (2) Cannabis abuse ICD Codes: F12.10 - Cannabis abuse, uncomplicated Status: Acute Assessment & Plan 22-year-old male with psychiatric history as detailed above who presents under ex parte order initiated by grandmother. On my examination today, the patient presents with signs of decompensated psychosis including internal stimulation and thought disorder. Grandmother reports that the patient has been non- adherent with oral psychotropics. Plan will be to admit the patient to the inpatient psychiatric unit for safety, observation and stabilization. Admit inpatient. Involuntary status. I have completed first opinion. Consult for second opinion. Request healthcare surrogate and guardian advocate. Resume Risperdal 3 mg at bedtime. Nurse to confirm name, dose and last date of administration for patient's long-acting injectable. Ativan as needed for anxiety. Cogentin as needed for EPS. Benadryl as needed for sleep. R/B/A for medications discussed with patient's healthcare surrogate. Vitals every shift. Counselor to see. Disposition planning. Estimated length of stay: 5-7 days. Discharge Planning Pending psychiatric stabilization Request HC Surrog/Guard Advoc?: Yes Problem Qualifiers (1) Schizophrenia: Qualified Codes: F20.3 - Undifferentiated schizophrenia Kofi Da Silva MD Jul 09, 2017 12:08
[2017-07-09 13:11] LABS: BICARBONATE 29.4 MEQ/L (21.0-32.0); BLOOD UREA NITROGEN 9 MG/DL (7-18); CALCIUM 9.7 MG/DL (8.5-10.1); CHLORIDE 103 MEQ/L (98-107); CREATININE 0.99 MG/DL (0.60-1.30); GLOMERULAR FILTRATION RATE 113 ML/MIN (>89); GLUCOSE,RANDOM 93 MG/DL (74-106); SODIUM (NA) 140 MEQ/L (136-145)
[2017-07-09 13:12] LABS: CHOLESTEROL 119 MG/DL (120-200)
[2017-07-09 13:16] LABS: LDL CHOLESTEROL 61 MG/DL (0-99); TRIGLYCERIDES 68 MG/DL (42-150)
[2017-07-09] MEDS ORDERED: BENZTROPINE MESYLATE 1 MG TAB PO PRN (14:15)
[2017-07-09] MEDS ORDERED: LORazepam 2 MG/ML VIAL IM PRN (14:15)
[2017-07-09] MEDS ORDERED: BENZTROPINE MESYLATE 2 MG/2 ML VIAL IM PRN (14:15)
[2017-07-09] MEDS ORDERED: LORazepam 1 MG TAB PO PRN (14:15)
[2017-07-09 17:37] VITALS: BP 129/58; PULSE 66; RESP 18; TEMP 98.3; O2SAT 96
[2017-07-09 19:36] LABS: HEMOGLOBIN A1C 4.7 % (4.3-6.0)
[2017-07-09] MEDS: risperiDONE 3 MG TAB PO SCH (20:31)
[2017-07-09] MEDS: diphenhydrAMINE HCL 50 MG CAP PO PRN (21:08)
[2017-07-10 06:09] VITALS: BP 110/57; PULSE 81; RESP 16; TEMP 98.2; O2SAT 98
--- NOTE | 2017-07-10 13:42 | PD.PSY.CON ---
Provisional Diagnosis Admission Date Jul 08, 2017 at 15:23 [place] I. 1. Schizophrenia, undifferentiated type, acute exacerbation 2. Cannabis abuse [place] II. Deferred History of Present Illness Service Psychiatry Consult Requested By Psychiatry Reason for Consult 2nd Opinion Primary Care Physician No Primary Care Physician HPI Pt seen and discussed with staff. Chart reviewed. Pt is a 22YOM with a hx of schizophrenia who was admitted to [facility] under an ex-parte taken out by grandmother alleging destruction of property and non compliance with medication. Staff report that pt has engaged in bizarre disorganized behavior and has been picking at skin laceration on finger. He has been isolative with minimal interaction on unit. Pt is noticed to have a very bizarre affect during interview. He states that he is having problems with his moods and admits to "acting out on a door". Staff reports that [facility] confirmed that pt had been non compliant with Risperdal Consta PERAZA. Pt gets agitated and insists that he goes to [facility] for an injection "every day, every week". He is quite guarded and paranoid and a poor historian. He states that he is being sent on "missions" by "other people",but will not elaborate. He was previously admitted to [facility] in October 2016. He denies medical problems. Past psychiatric history: Patient has history of schizophrenia. He follows at [facility], but has been non-compliant. Chemical dependency history: History of cannabis abuse. UDS positive for cannabinoids. Social history: The patient lives with his grandmother and other family members. He is single with no children. He has a 10th grade education. He is on SSI. He denies any history. Denies any legal history. Denies any access to guns or firearms. Denies any orthodox or spiritual beliefs. No reported trauma history. Past Family Social History Coded Allergies: No Known Allergies (Unverified , 05/05/16) Past Medical History Pt denies any medical problems and reports that he is in good health. and takes no medications Active Scripts Risperidone Inj (Risperdal Consta Inj) 25 Mg Inj, 25 MG IM Q14D for Mental Health, #2 VIAL 0 Refills This dose of Risperdal Consta due on 11/13/16. Prov:Kofi Da Silva MD 10/30/16 Risperidone (Risperdal) 1 Mg Tab, 1 MG PO DIRECTED for Mental Health for 15 Days, TAB 1 Refill 1mg PO qAM and 2mg PO qHS. Continue taking oral Risperdal for at least 3 weeks, or as instructed by outpatient provider. Be sure to get next Risperdal Consta injection. Prov:Kofi Da Silva MD 10/30/16 Current Medications Medications (Trade) Dose Ordered Sig/Berna Route Start Time Stop Time Status Last Admin (Tylenol) 650 mg Q4H PRN PO 07/08/17 15:45 (Milk Of Magnesia Liq) 30 ml DAILY PRN PO 07/08/17 15:45 (Mag-Al Plus Susp Liq) 30 ml Q6H PRN PO 07/08/17 15:45 (risperDAL) 3 mg HS PO 07/09/17 21:00 07/09/17 20:31 (Ativan) 1 mg Q6H PRN PO 07/09/17 14:15 (Ativan Inj) 1 mg Q6H PRN IM 07/09/17 14:15 (Cogentin) 1 mg Q12HR PRN PO 07/09/17 14:15 (Cogentin Inj) 1 mg Q12HR PRN IM 07/09/17 14:15 (Benadryl) 50 mg HS PRN PO 07/09/17 21:00 07/09/17 21:08 Family Psych History denies Patient's Strengths (min. 2) In a monitored setting. Verbally fluent. Physical Exam Vital Signs Vital Signs Date Time Temp Pulse Resp B/P (MAP) Pulse Ox O2 Delivery O2 Flow Rate FiO2 07/10/17 06:09 98.2 81 16 110/57 (74) 98 07/08/17 13:28 Room Air Lab Results Date/Time Source Procedure Growth Status 07/07/17 15:37 Urine Clean Catch Urine Culture - Final NO GROWTH IN 48 HOURS. Complete Mental Status Examination Appearance: Disheveled Consciousness: Alert, Vigilant Orientation: x4 Motor Activity: Normal gait Speech: Unremarkable Language: Adequate Fund of Knowledge: Adequate Attention and Concentration: Easily Distracted Memory: Unremarkable Mood: Irritable Affect: Irritable, Other (bizarre wide-eyed affect) Thought Process & Associations: Other (slowed) Thought Content: Delusional Hallucination Type: Other (appears internally stimulated) Delusion Type: Paranoid Suicidal Ideation: No (unreliable to contract for safety) Suicidal Plan: No Suicidal Intention: No Homicidal Ideation: No Homicidal Plan: No Homicidal Intention: No Insight: Poor Judgment: Poor Assessment & Plan Problem List: (1) Schizophrenia ICD Codes: F20.9 - Schizophrenia, unspecified Status: Acute (2) Cannabis abuse ICD Codes: F12.10 - Cannabis abuse, uncomplicated Status: Acute Assessment & Plan I agree that pt meets involuntary hospitalization criteria due to psychosis and recent agitation. 2nd opinion paperwork completed. Estimated LOS: days Request HC Surrog/Guard Advoc?: Yes Problem Qualifiers (1) Schizophrenia: Qualified Codes: F20.3 - Undifferentiated schizophrenia Leonor Madsen MD Jul 10, 2017 13:42
[2017-07-10 18:11] VITALS: BP 112/52; PULSE 76; RESP 18; TEMP 98.6; O2SAT 99
--- NOTE | 2017-07-10 20:08 | EKG ---
Date Performed: 07/09/2017 Time Performed: 12:19:52 PTAGE: 22 years EKG: SINUS BRADYCARDIA WITH SINUS ARRHYTHMIA POSSIBLE RIGHT VENTRICULAR CONDUCTION DELAY BORDERL INE ECG Since the PREVIOUS TRACING , no significant change noted PREVIOUS TRACIN10/28/2016 14.36 DOCTOR: Priscilla Pranell Interpretating Date/Time 07/10/2017 20:07:02
[2017-07-10] MEDS: BACITRACIN TOP OINT 15 GM TUBE TOPICAL SCH (20:51)
[2017-07-10] MEDS: diphenhydrAMINE HCL 50 MG CAP PO PRN (20:52)
[2017-07-10] MEDS: risperiDONE 3 MG TAB PO SCH (20:52)
[2017-07-11 05:06] VITALS: BP 115/63; PULSE 60; RESP 16; TEMP 97.6; O2SAT 98
[2017-07-11] MEDS: BACITRACIN TOP OINT 15 GM TUBE TOPICAL SCH ×2 (09:00→21:00)
--- NOTE | 2017-07-11 14:25 | HHI.PYPN ---
Subjective Chief Complaint: Psychosis Remarks Pt seen and discussed with staff. He has been compliant with medications and denies side effects. He states medication is "calming". He remains paranoid but has been less internally stimulated. No SI/HI Mental Status Examination Appearance: Appropriate Consciousness: Alert, Vigilant Orientation: x4 Motor Activity: Normal gait Speech: Unremarkable Language: Adequate Fund of Knowledge: Adequate Attention and Concentration: Easily Distracted Memory: Unremarkable Mood: Appropriate Affect: Other (bizarre wide-eyed affect) Thought Process & Associations: Tangential Thought Content: Delusional Hallucination Type: Other (appears internally stimulated) Delusion Type: Paranoid Suicidal Ideation: No (unreliable to contract for safety) Suicidal Plan: No Suicidal Intention: No Homicidal Ideation: No Homicidal Plan: No Homicidal Intention: No Insight: Poor Judgment: Poor Results Labs Date/Time Source Procedure Growth Status 07/07/17 15:37 Urine Clean Catch Urine Culture - Final NO GROWTH IN 48 HOURS. Complete Vitals/IOs Vital Signs Date Time Temp Pulse Resp B/P (MAP) Pulse Ox O2 Delivery O2 Flow Rate FiO2 07/11/17 05:06 97.6 60 16 115/63 (80) 98 07/08/17 13:28 Room Air Assessment & Plan Problem List: (1) Schizophrenia ICD Codes: F20.9 - Schizophrenia, unspecified Status: Acute (2) Cannabis abuse ICD Codes: F12.10 - Cannabis abuse, uncomplicated Status: Acute Assessment & Plan continue current tx plan. Estimated LOS: days Justification for Cont. Inpt. psychosis Request HC Surrog/Guard Advoc?: Yes Problem Qualifiers (1) Schizophrenia: Qualified Codes: F20.3 - Undifferentiated schizophrenia Leonor Madsen MD Jul 11, 2017 14:25
[2017-07-11 17:51] VITALS: BP 130/77; PULSE 65; RESP 17; TEMP 98.2; O2SAT 97
[2017-07-11] MEDS: risperiDONE 3 MG TAB PO SCH (21:02)
[2017-07-11] MEDS: diphenhydrAMINE HCL 50 MG CAP PO PRN (21:03)
[2017-07-12 05:52] VITALS: BP 95/54; PULSE 92; RESP 18; TEMP 97.8; O2SAT 99
[2017-07-12] MEDS: BACITRACIN TOP OINT 15 GM TUBE TOPICAL SCH (09:00)
[2017-07-12] MEDS ORDERED: Benztropine PO (12:20)
[2017-07-12] MEDS ORDERED: RISP3 PO (12:20)
[2017-07-12] MEDS ORDERED: DIPH25CA PO (12:20)
[2017-07-12] MEDS ORDERED: RISP25P IM (12:20)
--- NOTE | 2017-07-12 12:20 | HHI.DS ---
Psychiatry Discharge Summary Inpatient Psychiatric care?: Yes Advance Directive: No Reason Not Provided: Information provided to patient Mental Health AdvanceDirective: No Health Care Proxy: No Admission Admission Date Jul 08, 2017 at 15:23 Admission Diagnosis: (1) Schizophrenia ICD Code: F20.9 - Schizophrenia, unspecified (2) Cannabis abuse ICD Code: F12.10 - Cannabis abuse, uncomplicated Brief History Mr. Pimentel is a 22-year-old male with a history of schizophrenia who presents under an ex parte order initiated by his grandmother alleging destruction of property. Reviewing the electronic medical record, I note patient was admitted under my care in October 2016. Patient seen and examined with counselor. Chart reviewed. Case discussed with nursing staff. On my examination today, I find the patient out for fresh air. He is sitting on the periphery, interacting little with other people. He appears internally preoccupied. He is delayed in his responses and exhibits poor eye contact. He is fairly irritable. He says "I just need good meds to set my mind right." He exhibits some thought blocking. He denies AVH. He is guarded. He denies suicidal or homicidal ideation. No mood symptoms. Remainder of the psychiatric ROS is negative. No acute physical complaints. Tobacco Use In Past 30 Days: Cigarettes But Not Daily Alcohol Use: Never Hospital Course Patient was admitted to a locked, inpatient psychiatric unit. Appropriate precautions were in place throughout patient's hospital stay. Patient was seen and examined on the unit by psychiatry and also visited by counselor. Psychotropic medications were adjusted. Patient tolerated medication changes well without side effects. Patient had improvement in presenting psychiatric symptomatology during the course of his hospital stay. There was no evidence of any suicidality or homicidality on the inpatient unit. Collateral information was obtained from the patient's grandmother. On the day of discharge: Patient seen and examined with nurse. Chart reviewed. Case discussed with nursing staff reports the patient has been compliant with medications and has presented no behavioral problem overnight. Case discussed with counselor who has reached out to the patient's grandmother who is reportedly comfortable with having the patient return home today but asks that he be provided with a p.r.n. medication for anxiety should the need arise. On my examination today, the patient is requesting discharge from the inpatient psychiatric unit today. He denies any suicidal or homicidal ideation, intent or plan on direct questioning and contracts for safety. I can elicit no depressive or hypomanic/manic symptoms presently. Affect is considerably more reactive and he seems much more at ease today versus before the weekend. He denies any audiovisual hallucinations. I can elicit no delusional beliefs. There is no evidence of any impairment in reality construction in this patient at this time. He denies side effects from medications. I information systems analyst that the patient is presently capacitated to consent for psychotropic medications given his psychiatric improvement and have discussed with him the R/B/A of initiation of long-acting injectable Risperdal Consta, and the patient does provide consent for initiation of this agent today. No physical complaints. Suicide and violence risk assessment on day of discharge both suggest lower imminent risk from mental illness and the patient's level of function is adequate for outpatient care. The patient no longer meets criteria for involuntary psychiatric hospitalization. He is requesting discharge from the inpatient psychiatric unit today, and I have no basis to retain him over his objection. Patient will be discharged home today with psychiatric follow-up as arranged by counselor. Patient is also to follow-up with primary care. Patient to abstain from substances of abuse. Patient to return to psychiatric emergency room for any concerning psychiatric symptoms as part of a general safety plan. Results Blood Pressure 95 / 54 Vital Signs Date Time Temp Pulse Resp B/P (MAP) Pulse Ox O2 Delivery O2 Flow Rate FiO2 07/12/17 05:52 97.8 92 18 95/54 (68) 99 07/08/17 13:28 Room Air Laboratory Results Test 07/09/17 12:10 Cholesterol Level 119 MG/DL (120-200) HDL Cholesterol 44.0 MG/DL (40.0-60.0) Hemoglobin A1c 4.7 % (4.3-6.0) LDL Cholesterol 61 MG/DL (0-99) Triglycerides Level 68 MG/DL (42-150) Summary of Procedures None done Imaging None done Pending results at discharge: No Medications # of Antipsychotic meds at D/C: 1 Approp Antipsych med options 1 - Minimum of three failed multiple trials of monotherapy. 2 - Documented plan to taper to monotherapy due to previous use of multiple meds OR cross-taper in progress at D/C. 3 - Documentation of augmentation of Clozapine. 4 - Justification other than those listed in allowable values 1-3, document here : Discharge Discharge Date: Jul 12, 2017 Discharge Diagnosis: (1) Schizophrenia Diagnosis: Principal (stabilized) ICD Code: F20.9 - Schizophrenia, unspecified Status: Acute (2) Cannabis abuse Diagnosis: Secondary ICD Code: F12.10 - Cannabis abuse, uncomplicated Status: Acute Pt Condition on Discharge: Stable Discharge Disposition: Discharge Home Discharge Instructions Diet Instructions: As Tolerated, No Restrictions Activities you can perform: Weight Bearing as Zach Scheduled Appointment: as per counselor's notes New Medications: Diphenhydramine (Diphenhydramine) 25 Mg Cap 50 MG PO Q6H PRN for Anxiety or insomnia, #15 CAP 1 Refill Risperidone Inj (Risperdal Consta Inj) 25 Mg/2 Ml Inj 25 MG IM Q14D for Mental Health, #1 INJECTION 0 Refills This dose of Risperdal Consta is due on 07/26/2017. Risperidone (Risperdal) 3 Mg Tab 3 MG PO HS for Mental Health for 21 Days, TAB 0 Refills Take oral Risperdal for 21 days then stop. Be sure to get your next Risperdal Consta injection. [Benztropine] () 1 MG TAB 1 MG PO Q12HR PRN for EXTRA PYRAMIDAL SYMPTOMS, #15 1 Refill Discontinued Medications: Risperidone (Risperdal) 1 Mg Tab 1 MG PO DIRECTED for Mental Health for 15 Days, TAB 1 Refill 1mg PO qAM and 2mg PO qHS. Continue taking oral Risperdal for at least 3 weeks, or as instructed by outpatient provider. Be sure to get next Risperdal Consta injection. Risperidone Inj (Risperdal Consta Inj) 25 Mg Inj 25 MG IM Q14D for Mental Health, #2 VIAL 0 Refills This dose of Risperdal Consta due on 11/13/16. Discharge Time <= 30 minutes Mental Status Examination Appearance: Appropriate Consciousness: Alert Orientation: x4 Motor Activity: Other (no hand tremor, no dystonia, no dyskinesia, no other motor abnormalities noted.) Speech: Unremarkable Language: Adequate Fund of Knowledge: Adequate Attention and Concentration: Adequate Memory: Unremarkable Mood: Appropriate Affect: Appropriate, Euthymic Thought Process & Associations: Intact Thought Content: Appropriate Hallucination Type: None Delusion Type: None Suicidal Ideation: No Suicidal Plan: No Suicidal Intention: No Homicidal Ideation: No Homicidal Plan: No Homicidal Intention: No Mental Status Exam Remarks Insight and judgment are fair Discharge/Advance Care Plan Health Problems: (1) Schizophrenia (2) Cannabis abuse Goals to promote your health * To prevent worsening of your condition and complications * To maintain your health at the optimal level Directions to meet your goals Take your medications as prescribed Follow your dietary instruction Follow activity as directed Keep your appointments as scheduled Take your immunizations and boosters as scheduled If your symptoms worsen call your PCP, if no PCP go to Urgent Care Center or Emergency Room For 09/11 questions related to your inpatient stay or results of tests pending at discharge, please contact Dr. Kofi Da Silva at Smoking is Dangerous to Your Health. Avoid second hand smoking Problem Qualifiers (1) Schizophrenia: Qualified Codes: F20.3 - Undifferentiated schizophrenia Kofi Da Silva MD Jul 12, 2017 12:20
[2017-07-12] MEDS ORDERED: risperiDONE EXT REL INJ 25 MG/2 ML VIAL IM SCH (13:00)
== END 2017-07-12 15:00 | disposition home or self-care (01) | DRG 885 ==
LOC: NEDAMB 15:22 → NEDA 07-08 15:23 → H260 07-08 16:39
PROVIDERS: ADMIT Psychiatry & Neurology Psychiatry; ATTEND Psychiatry & Neurology Psychiatry
DX: F20.3 Undifferentiated schizophrenia (principal); F12.10 Cannabis abuse, uncomplicated; Z72.0 Tobacco use
CPT/HCPCS: 80048; 80053; 80061; 80307; 81001; 83036; 85025; 87086; 93005; 99285; J2794; Q0163